=== PATIENT | female | born 1995 | race Hispanic/Latino ===

== ENCOUNTER 2018-10-30 21:47 | Emergency (ER) | payer BC, SELFPAY ==
--- NOTE | 2018-10-30 22:04 | PC.NURSE ---
went to triage pt, she states she does not want to wait (saw full waiting room). here for URI symptoms. Encouraged to return if any concerns
== END 2018-10-30 22:04 | disposition left against medical advice (07) ==
PROVIDERS: Emergency Provider Emergency Medicine
DX: Z53.21 Procedure and treatment not carried out due to patient leaving prior to being seen by health care provider (principal)

== ENCOUNTER 2019-02-08 11:01 | Emergency (ER) | payer BC, SELFPAY ==
[2019-02-08 11:08] VITALS: BP 132/92; PULSE 75; RESP 19; O2SAT 100; BMI 24.0
[2019-02-08 11:36] LABS: Add Manual Diff / Slide Review NO; Basophils Absolute Auto 0 /uL (0-100); Basophils Percent Auto 0.3 % (0-2); Eosinophils Absolute Auto 0 /uL (0-450); Hematocrit 40.5 % (36-46); Hemoglobin 14.1 g/dL (12.0-16.0); INR 1.3 (0.9-1.3); Lymphocytes Absolute Auto 1900 /uL (1100-4500); Lymphocytes Percent Auto 18.1 % (25-40); Mean Corpuscular HGB Conc 34.7 % (30-36); Mean Corpuscular Hemoglobin 31.8 PG (26-34); Mean Corpuscular Volume 91.7 fL (80-100); Monocytes Absolute Auto 800 /uL (0-900); Monocytes Percent Auto 7.5 % (3-14); Neutrophils Absolute Auto 7700 /uL (1500-7000); Neutrophils Percent Auto 74.1 % (50-75); Platelet Count 179 X10^3/uL (150-400); Red Blood Cell Count 4.42 X10^6/uL (4.0-5.2); Red Cell Distribution Width 12.4 % (11.6-14.8); White Blood Cell Count 10.4 X10^3/uL (4.5-11.0)
[2019-02-08 11:39] LABS: PTT Partial Thromboplastin Tim 37 SECONDS (26.4-36.2)
[2019-02-08 11:40] LABS: Alanine Aminotransferase 33 IU/L (9-52); Albumin 4.6 g/dL (3.5-5.0); Albumin Globulin Ratio 1.3 (1.0-2.8); Alkaline Phosphatase 78 U/L (38-126); Aspartate Aminotransferase 35 IU/L (14-36); BUN Creatinine Ratio 12.9 (6-22); Bilirubin Total 0.8 mg/dL (0.2-1.3); Blood Urea Nitrogen 9 mg/dL (7-17); Calcium 9.3 mg/dL (8.4-10.2); Carbon Dioxide 27 mmol/L (22-32); Chloride 101 mmol/L (98-107); Estimated Glomerular Filt Rate > 60.0 mL/min (>60); Globulin 3.6 g/dL (1.7-4.1); Glucose 106 mg/dL (70-100); HEMOLYSIS < 15 (0-50); Lipase 45 U/L (23-300); Potassium 3.4 mmol/L (3.4-5.1); Sodium 137 mmol/L (137-145); Total Protein 8.2 g/dL (6.3-8.2)
--- NOTE | 2019-02-08 12:18 | DI.US.S_ITS ---
PROCEDURE: US PELVIC COMPLETE INDICATIONS: RIGHT PELVIC PAIN TECHNIQUE: Real-time scanning was performed of the pelvic organs, with image documentation. Additional endovaginal scanning was necessary due to incomplete visualization of the adnexal and endometrial structures by transabdominal scanning. COMPARISON: None. FINDINGS: Transabdominal scanning: Limited scanning through the kidneys shows no hydronephrosis. Minimal complex fluid within the cul-de-sac is present. Endovaginal scanning: Uterus: Uterus is normal in size at 6.5 x 3.0 x 3.5 cm. The endometrium measures 4.5 mm in combined thickness. Ovaries: Right ovary measures 35 x 19 x 26 mm. The left ovary measures 29 x 24 x 30 mm. IMPRESSION: 1. Minimal complex fluid within the cul-de-sac. Otherwise, unremarkable exam. Dictated by: Nicole Pereira M.D. on 02/08/2019 at 13:28 Approved by: Nicole Pereira M.D. on 02/08/2019 at 13:35
--- NOTE | 2019-02-08 13:45 | DI.CT.S_ITS ---
PROCEDURE: CT ABDOMEN PELVIS W CON INDICATIONS: right lower quad pain x 24 hours TECHNIQUE: After the administration of intravenous contrast, 5 mm thick sections acquired from the diaphragm to the symphysis. 5 mm coronal and sagittal reformats were acquired. For radiation dose reduction, the following was used: automated exposure control, adjustment of mA and/or kV according to patient size. COMPARISON: [facility], CT, ABD/PELVIS W/CON (PNL), 05/16/2010, 22:13. FINDINGS: Image quality: Excellent. ABDOMEN: Lung bases: Lung bases are clear. Heart size is normal. Solid organs: Liver is normal in size and enhancement. Mild, diffuse fatty infiltration of the liver. Gallbladder is within normal limits. Biliary system is non dilated. Pancreas enhances normally. Spleen is normal in size and enhancement. No adrenal nodules. Kidneys demonstrate normal size and enhancement, without hydronephrosis. Peritoneum and bowel: Bowel loops demonstrate normal wall thickness and caliber. No free air. Small amount of free fluid noted in the cul-de-sac of the pelvis. The visualized portions of the appendix are within normal limits. Nodes and vessels: No retroperitoneal or mesenteric adenopathy by size criteria. Aorta and inferior vena cava are normal in size. Miscellaneous: No ventral hernias. PELVIS: Genitourinary: Bladder wall thickness is normal. Numerous bilateral adnexal functional follicles are noted. Miscellaneous: No inguinal hernias or adenopathy. Bones: No suspicious bony lesions. No vertebral body compression fractures. IMPRESSION: 1. Visualized portions of the appendix are normal. Please note the base of the appendix is not visualized and the earliest manifestation of appendicitis cannot be completely excluded. 2. Small amount of free fluid in the cul-de-sac of the pelvis likely physiologic. 3. Multiple bilateral adnexal functional follicles. Please correlate with clinical data to exclude polycystic ovarian disease. 4. Hepatic steatosis. Dictated by: Ailyn Cortez MD, PhD on 02/08/2019 at 14:49 Approved by: Ailyn Cortez MD, PhD on 02/08/2019 at 14:56
[2019-02-08] MEDS: SODIUM CHLORIDE 0.9% 1,000 ML 1000 ML IV (14:05)
--- NOTE | 2019-02-08 14:29 | ED_ITS ---
HPI - Abdominal Pain <LISETTE Sifuentes - Last Filed: 02/08/19 15:35> General Chief Complaint: Abdominal Pain Stated Complaint: sweaty,loss of apetitie Time Seen by Provider: 02/08/19 12:06 Source: patient Mode of arrival: ambulatory Limitations: no limitations History of Present Illness HPI narrative: The patient is a 23-year-old female who does not take any medications and is a nonsmoker presents with a chief complaint of right lower quadrant pain for the past 3 days. She states it started in her general abdomen, then moved to the right lower quadrant. She complains of some nausea, sweats and chills. She denies any overt fevers, denies dysuria urgency or frequency. She denies any vaginal discharge or vaginal bleeding. She presented to the walk-in clinic, was found that she had a negative UA, as well as a negative test. They are concerned about appendicitis, so they sent her here to the emergency department. The patient states her last bowel movement was 2 days ago. She does not take any control, but denies any possibility of . She also denies any possibility of sexually transmitted infections. Related Data Home Medications Medication Instructions Recorded Confirmed No Known Home Medications 02/08/19 02/08/19 Allergies Allergy/AdvReac Type Severity Reaction Status Date / Time No Known Drug Allergies Allergy Verified 02/08/19 11:08 Review of Systems <LISETTE Sifuentes - Last Filed: 02/08/19 15:35> Review of Systems GENERAL: Denies chills, fatigue, malaise, fever, sweats. HEENT: Denies sinus pain, ear pain, sore throat, difficulty swallowing, dizziness. RESPIRATORY: Denies dyspnea, cough, wheezing, hemoptysis, sputum. CARDIOVASCULAR: Denies chest pain, palpitations, orthopnea, edema, GASTROINTESTINAL: See HPI : Denies dysuria, frequency, incontinence, hematuria, urinary retention. MUSCULOSKELETAL: denies weakness, joint pain, or bony pain SKIN: Denies rash, skin lesions, or other NEUROLOGIC: Denies weakness, headache, numbness, change in speech, confusion, seizures, incoordination. PSYCHIATRIC: No concerning psychosocial issues. 12 point review of systems is negative except for those stated above PFSH <SARAH BETH [facility] - Last Filed: 02/08/19 15:35> Social History Smoking Status: Never smoker alcohol intake: current Social History Smoking Status: Never smoker alcohol intake: current Exam <NIRAV Sifuentes - Last Filed: 02/08/19 15:35> Narrative Exam Narrative: GENERAL: This is a well-nourished, well-developed patient, no acute distress HEAD: Atraumatic. Normocephalic. No temporal or scalp tenderness. EYES: Pupils equal round and reactive. Extraocular motions intact. No scleral icterus. No injection or drainage. ENT: Nose without bleeding, purulent drainage or septal hematoma. Throat without erythema, tonsillar hypertrophy or exudate. Uvula midline. Airway patent. NECK: Trachea midline. No JVD or lymphadenopathy. Supple, nontender, no meningeal signs. CARDIOVASCULAR: Regular rate and rhythm without murmurs, gallops, or rubs. RESPIRATORY: Clear to auscultation. Breath sounds equal bilaterally. No wheezes, rales, or rhonchi. No cough. No increased respiratory effort. No accessory muscle use. GASTROINTESTINAL: Abdomen soft, pain to palpation of McBurney's point with slight guarding. Active bowel sounds all 4 quadrants. No tenderness other than right lower quadrant. EXTREMITIES: No clubbing, cyanosis, or edema. No joint tenderness, effusion, or edema noted. BACK: Nontender without deformity or crepitance. No flank tenderness. NEURO: AOx3. SKIN: No rash or erythema. Initial Vital Signs Initial Vital Signs: Vital Signs Pulse Rate 75 02/08/19 11:08 Respiratory Rate 02/08/19 11:08 Blood Pressure 132/92 H 02/08/19 11:08 Pulse Oximetry 100 02/08/19 11:08 <Rubi Diaz MD - Last Filed: 02/08/19 20:36> Initial Vital Signs Initial Vital Signs: Vital Signs Pulse Rate 75 02/08/19 11:08 Respiratory Rate 02/08/19 11:08 Blood Pressure 132/92 H 02/08/19 11:08 Pulse Oximetry 100 02/08/19 11:08 Course <NIRAV Sifuentes - Last Filed: 02/08/19 15:35> Orders Ordered: ED Orders 02/08/19 12:18 US pelvic complete Stat 02/08/19 13:45 CT abdomen pelvis w con Stat Discontinued Medications Sodium Chloride (Normal Saline 0.9%) 1,000 mls @ 1,000 mls/hr IV BOLUS ONE Stop: 02/08/19 14:34 Last Infusion: 02/08/19 15:21 Dose: 0 mls/hr Admin: 02/08/19 14:05 Dose: 1,000 mls/hr Vital Signs - 8 hr 02/08/19 15:37 Pulse Rate 82 Respiratory Rate 12 Blood Pressure 118/76 Pulse Oximetry 98 <Rubi Diaz MD - Last Filed: 02/08/19 20:36> Orders Ordered: ED Orders 02/08/19 12:18 US pelvic complete Stat 02/08/19 13:45 CT abdomen pelvis w con Stat Discontinued Medications Sodium Chloride (Normal Saline 0.9%) 1,000 mls @ 1,000 mls/hr IV BOLUS ONE Stop: 02/08/19 14:34 Last Infusion: 02/08/19 15:21 Dose: 0 mls/hr Admin: 02/08/19 14:05 Dose: 1,000 mls/hr Vital Signs - 8 hr 02/08/19 15:37 Pulse Rate 82 Respiratory Rate 12 Blood Pressure 118/76 Pulse Oximetry 98 MDM - Abdominal Pain <NIRAV Sifuentes - Last Filed: 02/08/19 15:35> Lab Data Result diagrams: 02/08/19 11:19 02/08/19 11:19 Lab Results 02/08/19 02/08/19 02/08/19 Range/Units 11:19 11:19 11:19 WBC 10.4 (4.5-11.0) X10^3/uL RBC 4.42 (4.0-5.2) X10^6/uL Hgb 14.1 (12.0-16.0) g/dL Hct 40.5 (36-46) % MCV 91.7 (80-100) fL MCH 31.8 (26-34) PG MCHC 34.7 (30-36) % RDW 12.4 (11.6-14.8) % Plt Count 179 (150-400) X10^3/uL Neut % (Auto) 74.1 (50-75) % Lymph % (Auto) 18.1 L (25-40) % [place] % (Auto) 7.5 (3-14) % Eos % (Auto) 0.0 L (2-4) % Baso % (Auto) 0.3 (0-2) % Neut # (Auto) 7700 H (8618-2435) /uL Lymph # (Auto) 1900 (5980-9732) /uL [place] # (Auto) 800 (0-900) /uL Eos # (Auto) 0 (0-450) /uL Baso # (Auto) 0 (0-100) /uL PT 15.0 H (10.1-12.7) SECONDS INR 1.3 (0.9-1.3) APTT 37 H (26.4-36.2) SECONDS Sodium 137 (137-145) mmol/L Potassium 3.4 (3.4-5.1) mmol/L Chloride 101 (98-107) mmol/L Carbon Dioxide 27 (22-32) mmol/L BUN 9 (7-17) mg/dL Creatinine 0.70 (0.52-1.04) mg/dL Estimated GFR > 60.0 (>60) mL/min BUN/Creatinine Ratio 12.9 (6-22) Glucose 106 H (70-100) mg/dL Calcium 9.3 (8.4-10.2) mg/dL Total Bilirubin 0.8 (0.2-1.3) mg/dL AST 35 (14-36) IU/L ALT 33 (9-52) IU/L Alkaline Phosphatase 78 (38-126) U/L Total Protein 8.2 (6.3-8.2) g/dL Albumin 4.6 (3.5-5.0) g/dL Globulin 3.6 (1.7-4.1) g/dL Albumin/Globulin Ratio 1.3 (1.0-2.8) Lipase 45 (23-300) U/L Imaging Data CT scan - abdomen: Radiologist's impression: [address] [address] [address] Scan Report Signed Patient: Krupa Angel#: [id number] : 1995Acct:[id number] Age/Sex: 23 / FDate of Service: 02/08/19 Loc: ED Accession Number: [id number] Procedure: CT abdomen pelvis w con Ordering Provider: Brandie Durant PROCEDURE: CT ABDOMEN PELVIS W CON INDICATIONS: right lower quad pain x 24 hours TECHNIQUE: After the administration of intravenous contrast, 5 mm thick sections acquired from the diaphragm to the symphysis. 5 mm coronal and sagittal reformats were acquired. For radiation dose reduction, the following was used: automated exposure control, adjustment of mA and/or kV according to patient size. COMPARISON: [facility], CT, ABD/PELVIS W/CON (PNL), 05/16/2010, 22:13. FINDINGS: Image quality: Excellent. ABDOMEN: Lung bases: Lung bases are clear. Heart size is normal. Solid organs: Liver is normal in size and enhancement. Mild, diffuse fatty infiltration of the liver. Gallbladder is within normal limits. Biliary system is non dilated. Pancreas enhances normally. Spleen is normal in size and enhancement. No adrenal nodules. Kidneys demonstrate normal size and enhancement, without hydronephrosis. Peritoneum and bowel: Bowel loops demonstrate normal wall thickness and caliber. No free air. Small amount of free fluid noted in the cul-de-sac of the pelvis. The visualized portions of the appendix are within normal limits. Nodes and vessels: No retroperitoneal or mesenteric adenopathy by size criteria. Aorta and inferior vena cava are normal in size. Miscellaneous: No ventral hernias. PELVIS: Genitourinary: Bladder wall thickness is normal. Numerous bilateral adnexal functional follicles are noted. Miscellaneous: No inguinal hernias or adenopathy. Bones: No suspicious bony lesions. No vertebral body compression fractures. IMPRESSION: 1. Visualized portions of the appendix are normal. Please note the base of the appendix is not visualized and the earliest manifestation of appendicitis cannot be completely excluded. 2. Small amount of free fluid in the cul-de-sac of the pelvis likely physiologic. 3. Multiple bilateral adnexal functional follicles. Please correlate with clinical data to exclude polycystic ovarian disease. 4. Hepatic steatosis. Dictated by: Ailyn Cortez MD, PhD on 02/08/2019 at 14:49 Approved by: Ailyn Cortez MD, PhD on 02/08/2019 at 14:56 Pelvic ultrasound: Radiologist's impression: [address] [address] Ultrasound Report Signed Patient: Krupa AngelMR#: [id number] : 1995Acct:[id number] Age/Sex: 23 / FDate of Service: 02/08/19 Loc: ED Accession Number: [id number] Procedure: US pelvic complete Ordering Provider: Brandie Durant PROCEDURE: US PELVIC COMPLETE INDICATIONS: RIGHT PELVIC PAIN TECHNIQUE: Real-time scanning was performed of the pelvic organs, with image documentation. Additional endovaginal scanning was necessary due to incomplete visualization of the adnexal and endometrial structures by transabdominal scanning. COMPARISON: None. FINDINGS: Transabdominal scanning: Limited scanning through the kidneys shows no hydronephrosis. Minimal complex fluid within the cul-de-sac is present. Endovaginal scanning: Uterus: Uterus is normal in size at 6.5 x 3.0 x 3.5 cm. The endometrium measures 4.5 mm in combined thickness. Ovaries: Right ovary measures 35 x 19 x 26 mm. The left ovary measures 29 x 24 x 30 mm. IMPRESSION: 1. Minimal complex fluid within the cul-de-sac. Otherwise, unremarkable exam. Dictated by: Nicole Pereira M.D. on 02/08/2019 at 13:28 Approved by: Nicole Pereira M.D. on 02/08/2019 at 13:35 MDM Narrative Medical decision making narrative: The patient is a 23-year-old female who presents with right lower quadrant pain. She had no acute findings on her ultrasound. Given her exam, I also obtained a CT, which also does not show any appendicitis. I did discuss the patient multiple ovarian cysts seen on CT as w ell as hepatic steatosis. It is reassuring that she does not have elevated white blood cell count. I discussed at length follow up with PCP and gave her contact information for the [facility] health instructional resource teacher. We did discuss return precautions such as inability keep down fluids, abdominal pain with fever etc. Patient has no questions or concerns upon discharge. She was hemodynamically stable and afebrile throughout her stay in the ER. <Rubi Diaz MD - Last Filed: 02/08/19 20:36> Lab Data Lab Results 06/25/19 06/25/19 06/25/19 Range/Units 11:19 11:19 11:19 WBC 10.4 (4.5-11.0) X10^3/uL RBC 4.42 (4.0-5.2) X10^6/uL Hgb 14.1 (12.0-16.0) g/dL Hct 40.5 (36-46) % MCV 91.7 (80-100) fL MCH 31.8 (26-34) PG MCHC 34.7 (30-36) % RDW 12.4 (11.6-14.8) % Plt Count 179 (150-400) X10^3/uL Neut % (Auto) 74.1 (50-75) % Lymph % (Auto) 18.1 L (25-40) % [place] % (Auto) 7.5 (3-14) % Eos % (Auto) 0.0 L (2-4) % Baso % (Auto) 0.3 (0-2) % Neut # (Auto) 7700 H (0039-6205) /uL Lymph # (Auto) 1900 (3939-1692) /uL [place] # (Auto) 800 (0-900) /uL Eos # (Auto) 0 (0-450) /uL Baso # (Auto) 0 (0-100) /uL PT 15.0 H (10.1-12.7) SECONDS INR 1.3 (0.9-1.3) APTT 37 H (26.4-36.2) SECONDS Sodium 137 (137-145) mmol/L Potassium 3.4 (3.4-5.1) mmol/L Chloride 101 (98-107) mmol/L Carbon Dioxide 27 (22-32) mmol/L BUN 9 (7-17) mg/dL Creatinine 0.70 (0.52-1.04) mg/dL Estimated GFR > 60.0 (>60) mL/min BUN/Creatinine Ratio 12.9 (6-22) Glucose 106 H (70-100) mg/dL Calcium 9.3 (8.4-10.2) mg/dL Total Bilirubin 0.8 (0.2-1.3) mg/dL AST 35 (14-36) IU/L ALT 33 (9-52) IU/L Alkaline Phosphatase 78 (38-126) U/L Total Protein 8.2 (6.3-8.2) g/dL Albumin 4.6 (3.5-5.0) g/dL Globulin 3.6 (1.7-4.1) g/dL Albumin/Globulin Ratio 1.3 (1.0-2.8) Lipase 45 (23-300) U/L Discharge Plan Departure Patient Disposition: Home Clinical Impression: Abdominal pain Qualifiers: Abdominal location: right lower quadrant Qualified Code(s): R10.31 - Right lower quadrant pain Discharge Date/Time: 02/08/19 15:37 Interventions: ED Discharge Assessment Last Done: 02/08/19 15:37 Instructions: DI for Abdominal Pain-Adult Activity Restrictions/Additional Instructions: Your evaluation today did not find any specific reason for your right lower quadrant pain. Please follow up with her primary care provider. I have given contact information for [facility] health instructional resource teacher, who can help you identify a primary care provider. Please come back to the emergency department for any acute concerns such as fever with abdominal pain, inability keep down fluids, etc. I recommend a simple diet for the next few days. Prescriptions: No Action No Known Home Medications RF: 0 Referrals: [facility] [Outside] Stand Alone Forms: Work Release Note
[2019-02-08 15:37] VITALS: BP 118/76; PULSE 82; RESP 12; O2SAT 98
== END 2019-02-08 15:37 | disposition home or self-care (01) ==
PROVIDERS: Emergency Medicine; Emergency Provider Nurse Practitioner Family
DX: R10.31 Right lower quadrant pain (principal)
CPT/HCPCS: 36415; 36591; 74177; 76856; 80053; 83690; 85025; 85610; 85730; 96360; 99283; 99284; Q9967

== ENCOUNTER → 2019-07-08 16:25 | Outpatient (CLI) | payer BC, SELFPAY ==
[2019-07-08 18:21] LABS: Add Manual Diff / Slide Review NO; Basophils Absolute Auto 100 /uL (0-100); Basophils Percent Auto 0.4 % (0-2); Eosinophils Absolute Auto 0 /uL (0-450); Eosinophils Percent Auto 0.3 % (2-4); Hematocrit 38.6 % (36-46); Lymphocytes Absolute Auto 4100 /uL (1100-4500); Mean Corpuscular HGB Conc 33.6 % (30-36); Mean Corpuscular Hemoglobin 32.2 PG (26-34); Mean Corpuscular Volume 95.9 fL (80-100); Monocytes Absolute Auto 900 /uL (0-900); Monocytes Percent Auto 6.2 % (3-14); Neutrophils Absolute Auto 9700 /uL (1500-7000); Neutrophils Percent Auto 65.1 % (50-75); Platelet Count 211 X10^3/uL (150-400); Red Blood Cell Count 4.03 X10^6/uL (4.0-5.2); Red Cell Distribution Width 12.4 % (11.6-14.8); White Blood Cell Count 14.8 X10^3/uL (4.5-11.0)
[2019-07-08 20:17] LABS: Hepatitis B Surface Antigen NEGATIVE s/c (NEGATIVE); Rubella Antibody IgG 15.3 IU/mL (>15)
[2019-07-08 20:32] LABS: HIV 1 & 2 Ab/Ag 4th Gen Combo NEGATIVE (NEGATIVE); Hep C Virus Ab w/Reflex Quant NEGATIVE s/c (NEGATIVE)
[2019-07-11 18:35] LABS: RPR Screen Nonreactive (Nonreactive)
== END ==
PROVIDERS: Visit Provider Obstetrics & Gynecology
DX: Z34.01 Encounter for supervision of normal first pregnancy, first trimester (principal)
CPT/HCPCS: 36415; 80055; 86787; 86803; 86850; 86900; 86901; 87389

== ENCOUNTER → 2019-08-04 14:37 | Outpatient (CLI) | payer BC, SELFPAY | PROVIDERS: Visit Provider Family Medicine | DX: Z34.01 Encounter for supervision of normal first pregnancy, first trimester (principal); Z3A.10 10 weeks gestation of pregnancy | CPT/HCPCS: 87086 ==

== ENCOUNTER 2019-09-05 10:50 | Emergency (ER) | payer OTHER, BC, SELFPAY ==
[2019-09-05 10:50] VITALS: BP 125/85; PULSE 102; RESP 18; O2SAT 100
--- NOTE | 2019-09-05 10:56 | ED.SYNCOPE ---
HPI - Syncope <KEYSHA Barlow - Last Filed: 09/05/19 17:11> General Chief Complaint: Syncope Stated Complaint: 15w3d preg, syncopal episode Time Seen by Provider: 09/05/19 10:55 Source: patient and EMS Mode of arrival: EMS Limitations: no limitations History of Present Illness HPI narrative: 24yo female presents to the emergency department for syncope. She states she was at work, she was standing and loading an x-ray film and the next thing she remembers she woke up on the floor with her coworkers surrounding her, including a doctor. She was not told how long that she had passed out for. When she woke she felt like her arms felt heavy but denies any other symptoms. She is unsure if anyone caught her. 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 She states that she ate a bagel this morning, EMS said patient's blood sugar was 80 when they arrived she had a spoon of Nutella in her hand. Patient denies any symptoms such as headache, blurred vision, double vision, history of high blood pressure, history of diabetes, history of cardiac issues, chest pain, shortness of breath, abdominal pain, neck pain, dizziness at this time, nausea, vomiting, diarrhea, vaginal bleeding, or concerns. She states this has been uneventful other than nausea and vomiting in the 1st trimester which has resolved. She states she has never passed out the past. Related Data Home Medications Medication Instructions Recorded Confirmed prenat.vits,jeff,[id number] 1 tab PO DAILY 07/08/19 09/02/19 [id number] 1 tab PO DAILY 09/05/19 09/05/19 [] Previous Rx's Medication Instructions Recorded metoclopramide HCl 10 mg tablet 10 mg PO Q6H PRN #20 tab 07/22/19 ondansetron 4 mg disintegrating 4 mg PO Q8H PRN #20 tab MDD 12 mg 08/08/19 tablet Allergies Allergy/AdvReac Type Severity Reaction Status Date / Time No Known Drug Allergies Allergy Unverified 09/05/19 10:53 Review of Systems <KEYSHA Barlow - Last Filed: 09/05/19 17:11> Review of Systems Narrative: REVIEW OF SYSTEMS: GENERAL: Denies fever or chills. HENT: No head trauma, hearing loss or sore throat. EYES: No loss of vision, double vision, eye pain, or irritation. CARDIOVASCULAR: No chest pain. Reports syncope, see HPI. RESPIRATORY: No shortness of breath or cough. GASTROINTESTINAL: No nausea, vomiting, diarrhea, or constipation. GENITOURINARY: No flank pain or dysuria. MUSCULOSKELETAL: No pain, weakness, or deformities. INTEGUMENTARY: No rash, lesions, or pruritus. NEURO: No numbness, tingling, memory loss, or confusion. PSYCH: No behavior or mood changes. Patient History <KEYSHA Barlow - Last Filed: 09/05/19 17:11> Medical History No significant family history (Acute) Social History marital status: pets and animals: Yes (Dog) education level: college (15 years) current occupational exposures/hazards: No special tete needs: No Smoking Status: Never smoker alcohol intake: current substance use type: marijuana (uses for anxiety management : used for 6 weeks before she knew she was pregant.) Smoking Status: Never smoker alcohol intake frequency: 0-2 drinks per day Substance Use Type: does not use Exam <KEYSHA Barlow - Last Filed: 09/05/19 17:11> Initial Vital Signs Initial Vital Signs: Vital Signs Pulse Rate 102 H 09/05/19 10:50 Respiratory Rate 18 09/05/19 10:50 Blood Pressure 125/85 09/05/19 10:50 Pulse Oximetry 100 09/05/19 10:50 PHYSICAL EXAMINATION: GENERAL: Well groomed, alert, and cooperative. Answers questions promptly and appropriately. Vital signs noted. HENT: Normocephalic, atraumatic. Oropharynx without erythema. Ear canals patent. Oral mucosa is pink and moist. EYES: PERRLA, EOMIs, Conjunctiva pink, sclera white, no periorbital swelling. NECK: Nontender, full range of motion CHEST: Normal to inspection and without deformities. CARDIOVASCULAR: S1 and S2 sounds normal. Regular rate and rhythm, no murmurs, clicks, or bruits. No pedal edema. RESPIRATORY: Normal respiratory rate, trachea midline, airway patent. No stridor, nasal flaring or accessory muscle use. Lungs are clear in all lopez without wheeze, rhonchi, or crackles. GASTROINTESTINAL: Bowel sounds normoactive. Abdomen is soft and non-tender. Fundus palpated above pubic bone. MUSCULOSKELETAL: Normal gait and coordination. Equal tone and mass bilaterally. EXTREMITIES: CMS intact. Moves all extremities. SKIN: Warm, dry, soft, appropriate color for ethnicity. No lesions, rashes, or wounds. NEURO: Alert and Oriented X 3. Good coordination. CN III-XII grossly intact. No ataxia, or sensory deficits, or cognitive issues. PSYCH: Appropriate affect and mood. <Brandie Vargas DO - Last Filed: 09/06/19 19:10> Initial Vital Signs Initial Vital Signs: Vital Signs Pulse Rate 102 H 09/05/19 10:50 Respiratory Rate 18 09/05/19 10:50 Blood Pressure 125/85 09/05/19 10:50 Pulse Oximetry 100 09/05/19 10:50 Scores <KEYSHA Barlow - Last Filed: 09/05/19 17:11> GCS Wanda coma scale eye opening: Spontaneous Wanda coma scale verbal response: Orientated Wanda coma scale motor response: Obey commands [place] coma scale total score: 15 Nexus Score for C-Spine Focal Neurologic deficit present: No Midline spinal tenderness present: No Altered level of conciousness present: No Intoxication present: No Distracting Injury Present: No Nexus Criteria for C-spine: 0 Course <KEYSHA Barlow - Last Filed: 09/05/19 17:11> Course Course Narrative: Patient was given a L fluid in the emergency department, she states she is feeling much better after the fluid. She was given a snack and was able to ambulate without any distress or symptoms. Orders Ordered: Discontinued Medications Sodium Chloride (Normal Saline 0.9%) 1,000 mls @ 1,000 mls/hr IV BOLUS ONE Stop: 09/05/19 11:52 Last Infusion: 09/05/19 12:18 Dose: 0 mls/hr Documented by: Admin: 09/05/19 11:12 Dose: 1,000 mls/hr Documented by: SCANAPO Consultations Consultation #1: Patient staffed with Dr. Vargas. Vital Signs Vital signs: Vital Signs - 8 hr 09/05/19 10:50 09/05/19 11:23 09/05/19 12:00 Pulse Rate 102 H 84 89 Respiratory Rate 18 21 17 Blood Pressure 125/85 Blood Pressure [Left Arm] 124/74 122/81 Pulse Oximetry 100 100 100 <Brandie Vargas DO - Last Filed: 09/06/19 19:10> Orders Ordered: Discontinued Medications Sodium Chloride (Normal Saline 0.9%) 1,000 mls @ 1,000 mls/hr IV BOLUS ONE Stop: 09/05/19 11:52 Last Infusion: 09/05/19 12:18 Dose: 0 mls/hr Documented by: Admin: 09/05/19 11:12 Dose: 1,000 mls/hr Documented by: SCANAPO Vital Signs Vital signs: Vital Signs - 8 hr 09/05/19 10:50 09/05/19 11:23 09/05/19 12:00 Pulse Rate 102 H 84 89 Respiratory Rate 18 21 17 Blood Pressure 125/85 Blood Pressure [Left Arm] 124/74 122/81 Pulse Oximetry 100 100 100 MDM - Syncope <KEYSHA Barlow - Last Filed: 09/05/19 17:11> Medical Records Attestation: I reviewed the patient's medical records. Lab Data Attestation: I reviewed the patient's lab results. Result diagrams: 09/05/19 11:00 09/05/19 11:00 Labs: Lab Results 09/05/19 09/05/19 Range/Units 11:00 11:00 WBC 14.2 H (4.5-11.0) X10^3/uL RBC 4.00 (4.0-5.2) X10^6/uL Hgb 13.2 (12.0-16.0) g/dL Hct 37.2 (36-46) % MCV 93.1 (80-100) fL MCH 32.9 (26-34) PG MCHC 35.4 (30-36) % RDW 12.5 (11.6-14.8) % Plt Count 183 (150-400) X10^3/uL Neut % (Auto) 68.4 (50-75) % Lymph % (Auto) 24.4 L (25-40) % [place] % (Auto) 5.8 (3-14) % Eos % (Auto) 0.7 L (2-4) % Baso % (Auto) 0.7 (0-2) % Neut # (Auto) 9700 H (8632-1589) /uL Lymph # (Auto) 3500 (7400-6653) /uL [place] # (Auto) 800 (0-900) /uL Eos # (Auto) 100 (0-450) /uL Baso # (Auto) 100 (0-100) /uL Sodium 134 L (137-145) mmol/L Potassium 3.8 (3.4-5.1) mmol/L Chloride 104 (98-107) mmol/L Carbon Dioxide 19 L (22-32) mmol/L BUN 8 (7-17) mg/dL Creatinine 0.40 L (0.52-1.04) mg/dL Estimated GFR > 60.0 (>60) mL/min BUN/Creatinine Ratio 20.0 (6-22) Glucose 92 (70-100) mg/dL Calcium 9.7 (8.4-10.2) mg/dL Total Bilirubin 0.3 (0.2-1.3) mg/dL AST 41 H (14-36) IU/L ALT 47 H (<35) IU/L Alkaline Phosphatase 77 (38-126) U/L Total Creatine Kinase 65 (30-135) U/L CK-MB (CK-2) TNP CK-MB (CK-2) Rel Index TNP Troponin I < 0.012 (0.01-0.034) ng/mL Total Protein 8.1 (6.3-8.2) g/dL Albumin 4.5 (3.5-5.0) g/dL Globulin 3.6 (1.7-4.1) g/dL Albumin/Globulin Ratio 1.3 (1.0-2.8) Urine Dip Bedside Urine Glucose Negative Bedside Urine Bilirubin - Negative Bedside Urine Ketone - Negative Bedside Urine Occult Blood - Negative Bedside Urine Protein - Negative Bedside Urine Urobilinogen - Negative Bedside Urine Nitrite - Negative Bedside Urine Leukocytes - Negative Esterase ECG Data Interpretation: EKG read by Dr. Vargas per protocol. Normal sinus rhythm, rate 93, IN interval 163, QTC 387. No ST elevation or ST depression. No T-wave abnormality. No ectopy. MDM Narrative Medical decision making narrative: 24-year-old healthy female presents to the emergency department for what appears to be syncope most likely related to dehydration, changes in blood volume related to , and overheating (patient felt better after normal saline administration, slight hyponatremia, glucose of 80 in the field). Patient's white blood cells and LFTs were slightly elevated, this may be directly related to . Less likely cardiac etiology due to normal EKG and negative troponin. Less concern for head trauma as GCS is 15, no visible head trauma, no signs of concussion such as headache, memory loss, or vision changes. Less concern for preeclampsia related etiology as blood pressure is within normal limits, urine is negative for protein, patient denies any other symptoms. Less concern for compromise as heart tones were within normal limit, no vaginal bleeding, denies falling on her stomach, and no abdominal cramping. She was educated extensively about continuing to eat and hydrate. She was able to walk around the room without any symptoms such as dizziness or presyncope feelings. Patient was encouraged to follow up with her primary care provider in 1-2 weeks for further evaluation. She was given strict ED return precautions. <Brandie Vargas, DO - Last Filed: 09/06/19 19:10> Lab Data Labs: Lab Results 09/05/19 09/05/19 Range/Units 11:00 11:00 WBC 14.2 H (4.5-11.0) X10^3/uL RBC 4.00 (4.0-5.2) X10^6/uL Hgb 13.2 (12.0-16.0) g/dL Hct 37.2 (36-46) % MCV 93.1 (80-100) fL MCH 32.9 (26-34) PG MCHC 35.4 (30-36) % RDW 12.5 (11.6-14.8) % Plt Count 183 (150-400) X10^3/uL Neut % (Auto) 68.4 (50-75) % Lymph % (Auto) 24.4 L (25-40) % [place] % (Auto) 5.8 (3-14) % Eos % (Auto) 0.7 L (2-4) % Baso % (Auto) 0.7 (0-2) % Neut # (Auto) 9700 H (4687-2353) /uL Lymph # (Auto) 3500 (7280-5196) /uL [place] # (Auto) 800 (0-900) /uL Eos # (Auto) 100 (0-450) /uL Baso # (Auto) 100 (0-100) /uL Sodium 134 L (137-145) mmol/L Potassium 3.8 (3.4-5.1) mmol/L Chloride 104 (98-107) mmol/L Carbon Dioxide 19 L (22-32) mmol/L BUN 8 (7-17) mg/dL Creatinine 0.40 L (0.52-1.04) mg/dL Estimated GFR > 60.0 (>60) mL/min BUN/Creatinine Ratio 20.0 (6-22) Glucose 92 (70-100) mg/dL Calcium 9.7 (8.4-10.2) mg/dL Total Bilirubin 0.3 (0.2-1.3) mg/dL AST 41 H (14-36) IU/L ALT 47 H (<35) IU/L Alkaline Phosphatase 77 (38-126) U/L Total Creatine Kinase 65 (30-135) U/L CK-MB (CK-2) TNP CK-MB (CK-2) Rel Index TNP Troponin I < 0.012 (0.01-0.034) ng/mL Total Protein 8.1 (6.3-8.2) g/dL Albumin 4.5 (3.5-5.0) g/dL Globulin 3.6 (1.7-4.1) g/dL Albumin/Globulin Ratio 1.3 (1.0-2.8) Urine Dip Bedside Urine Glucose Negative Bedside Urine Bilirubin - Negative Bedside Urine Ketone - Negative Bedside Urine Occult Blood - Negative Bedside Urine Protein - Negative Bedside Urine Urobilinogen - Negative Bedside Urine Nitrite - Negative Bedside Urine Leukocytes - Negative Esterase Discharge Plan Departure Patient Disposition: Home Clinical Impression: Syncope Qualifiers: Syncope type: unspecified Qualified Code(s): R55 - Syncope and collapse Discharge Date/Time: 09/05/19 12:44 Instructions: DI for Syncope in Adults (Fainting) Activity Restrictions/Additional Instructions: Thank you for entrusting me with your care today. As discussed, your sodium was slightly low today, sprinkle a very small salt on 1 meal every other day for the next 1-2 weeks. Your syncopal episode may be due to dehydration, overheating, and the fluid and glucose demands of . Your EKG was non-remarkable. Your white blood cell count and liver enzymes were slightly elevated, this can be normal in . Please follow up with your primary care provider in 1-2 weeks for further evaluation. 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 Return emergency department if you develop new or worsening symptoms such as repeat episodes of syncope, chest pain, shortness of breath, abdominal pain, vaginal bleeding, fevers, or other concerns. Prescriptions: No Action metoclopramide HCl [Reglan] 10 mg tablet 10 mg PO Q6H PRN (Reason: nausea and vomiting) Qty: 20 RF: 0 ondansetron 4 mg tablet,disintegrating 4 mg PO Q8H MDD 12 mg PRN (Reason: nausea and vomiting) Qty: 20 RF: 0 prenat.vits,jeff,[id number] Tablet 1 tab PO DAILY RF: 0 28-800 mg-mcg Tablet 1 tab PO DAILY RF: 0 Stand Alone Forms: Work Release Note
[2019-09-05 11:09] LABS: Add Manual Diff / Slide Review NO; Basophils Absolute Auto 100 /uL (0-100); Basophils Percent Auto 0.7 % (0-2); Eosinophils Absolute Auto 100 /uL (0-450); Eosinophils Percent Auto 0.7 % (2-4); Hematocrit 37.2 % (36-46); Hemoglobin 13.2 g/dL (12.0-16.0); Lymphocytes Absolute Auto 3500 /uL (1100-4500); Lymphocytes Percent Auto 24.4 % (25-40); Mean Corpuscular HGB Conc 35.4 % (30-36); Mean Corpuscular Hemoglobin 32.9 PG (26-34); Mean Corpuscular Volume 93.1 fL (80-100); Monocytes Absolute Auto 800 /uL (0-900); Monocytes Percent Auto 5.8 % (3-14); Neutrophils Absolute Auto 9700 /uL (1500-7000); Neutrophils Percent Auto 68.4 % (50-75); Platelet Count 183 X10^3/uL (150-400); Red Cell Distribution Width 12.5 % (11.6-14.8); White Blood Cell Count 14.2 X10^3/uL (4.5-11.0)
[2019-09-05] MEDS: SODIUM CHLORIDE 0.9% 1,000 ML 1000 ML IV (11:12)
[2019-09-05 11:23] VITALS: BP 124/74; PULSE 84; RESP 21; O2SAT 100
[2019-09-05 11:28] LABS: Alanine Aminotransferase 47 IU/L (<35); Albumin 4.5 g/dL (3.5-5.0); Albumin Globulin Ratio 1.3 (1.0-2.8); Alkaline Phosphatase 77 U/L (38-126); Aspartate Aminotransferase 41 IU/L (14-36); Bilirubin Total 0.3 mg/dL (0.2-1.3); Blood Urea Nitrogen 8 mg/dL (7-17); Calcium 9.7 mg/dL (8.4-10.2); Carbon Dioxide 19 mmol/L (22-32); Chloride 104 mmol/L (98-107); Creatine Kinase 65 U/L (30-135); Estimated Glomerular Filt Rate > 60.0 mL/min (>60); Globulin 3.6 g/dL (1.7-4.1); Glucose 92 mg/dL (70-100); HEMOLYSIS 22 (0-50); Potassium 3.8 mmol/L (3.4-5.1); Sodium 134 mmol/L (137-145); Total Protein 8.1 g/dL (6.3-8.2)
[2019-09-05 11:38] LABS: Troponin I < 0.012 ng/mL (0.01-0.034)
[2019-09-05 12:00] VITALS: BP 122/81; PULSE 89; RESP 17; O2SAT 100
== END 2019-09-05 12:44 | disposition home or self-care (01) ==
PROVIDERS: Emergency Provider Nurse Practitioner
DX: O26.892 Other specified pregnancy related conditions, second trimester (principal); R55 Syncope and collapse
CPT/HCPCS: 36415; 80053; 81003; 82550; 84484; 85025; 93005; 93010; 96360; 99284

== ENCOUNTER → 2019-09-28 11:06 | Outpatient (CLI) | payer OTHER, BC, SELFPAY ==
[2019-09-28 12:02] LABS: Add Manual Diff / Slide Review NO; Basophils Absolute Auto 0 /uL (0-100); Basophils Percent Auto 0.2 % (0-2); Eosinophils Absolute Auto 100 /uL (0-450); Eosinophils Percent Auto 0.6 % (2-4); Hematocrit 34.3 % (36-46); Hemoglobin 11.6 g/dL (12.0-16.0); Lymphocytes Absolute Auto 2600 /uL (1100-4500); Lymphocytes Percent Auto 19.9 % (25-40); Mean Corpuscular HGB Conc 33.8 % (30-36); Mean Corpuscular Hemoglobin 32.7 PG (26-34); Mean Corpuscular Volume 96.6 fL (80-100); Monocytes Absolute Auto 700 /uL (0-900); Monocytes Percent Auto 5.5 % (3-14); Neutrophils Absolute Auto 9600 /uL (1500-7000); Neutrophils Percent Auto 73.8 % (50-75); Platelet Count 159 X10^3/uL (150-400); Red Blood Cell Count 3.55 X10^6/uL (4.0-5.2)
[2019-09-28 12:22] LABS: Alanine Aminotransferase 52 IU/L (<35); Albumin 3.8 g/dL (3.5-5.0); Albumin Globulin Ratio 1.2 (1.0-2.8); Alkaline Phosphatase 79 U/L (38-126); Aspartate Aminotransferase 45 IU/L (14-36); Bilirubin Total 0.3 mg/dL (0.2-1.3); Blood Urea Nitrogen 8 mg/dL (7-17); Calcium 9.2 mg/dL (8.4-10.2); Carbon Dioxide 21 mmol/L (22-32); Chloride 104 mmol/L (98-107); Estimated Glomerular Filt Rate > 60.0 mL/min (>60); Globulin 3.3 g/dL (1.7-4.1); Glucose 124 mg/dL (70-100); HEMOLYSIS < 15 (0-50); Potassium 3.5 mmol/L (3.4-5.1); Sodium 135 mmol/L (137-145); Total Protein 7.1 g/dL (6.3-8.2)
[2019-09-28 12:47] LABS: TSH w/ Reflex to FT4 1.64 uIU/mL (0.47-4.68)
== END ==
PROVIDERS: PCP Family Medicine; Referring Provider Family Medicine; Visit Provider Family Medicine
DX: Z34.90 Encounter for supervision of normal pregnancy, unspecified, unspecified trimester (principal)
CPT/HCPCS: 36415; 80053; 84443; 85025

== ENCOUNTER → 2019-10-05 10:55 | Outpatient (CLI) | payer OTHER, BC, SELFPAY ==
--- NOTE | 2019-10-21 16:04 | PM.CARDMON.1 ---
Embedded Software Programmer Report Referral & Results Date Patient Seen: 10/05/19 Requesting provider: Elliot Santos Indication: Syncope Duration of monitoring (days): 7 Diary information: There were 7 patient triggered events associated with sinus rhythm and ventricular ectopic beats. There were no patient diary events Data: Minimum heart rate identified was 54 beats per minute at 02:10 on 10/06/2019 Maximum heart rate was 166 beats per minute at 19:40 on 10/10/2019 Less than 1% of identified beats or either ventricular supraventricular ectopic in origin No other significant dysrhythmias identified Patient triggered events seem to be associated with sinus rhythm mostly perhaps rarely a PVC Impression: Essentially normal youth nutritional monitor over 7 days No etiology for syncope identified Occasional PVCs Clinical correlation suggested
== END ==
PROVIDERS: PCP Family Medicine; Referring Provider Family Medicine; Visit Provider Family Medicine
DX: R55 Syncope and collapse (principal)
CPT/HCPCS: 0296T; 0298T

== ENCOUNTER → 2019-10-12 10:43 | Outpatient (CLI) | payer OTHER, BC, SELFPAY ==
--- NOTE | 2019-10-12 10:44 | DI.US.S_ITS ---
PROCEDURE: US OB >= 14 WEEKS FETUS INDICATIONS: ANATOMIC SURVEY OUTSIDE/PRIOR DATING DATA: First dating scan (date and location): 07/08/19. Estimated date of delivery (JADE) from first dating scan: 02/25/20. TECHNIQUE: Real-time scanning was performed of the fetus, with image documentation and biometric measurements. Endovaginal scanning: No COMPARISON: [facility], , OB <= 14 WEEKS FETUS, 07/08/2019, 16:03. FINDINGS: General: A single living intrauterine gestation is present. Presentation: Vertex. Placenta: Placental position is anterior, without previa. Amniotic fluid index: 13.5 cm, normal range is 5-24 cm. heart rate: 150 beats per minute. Maternal cervical canal: 3.8 cm long. Normal lower limit is 2.5 cm. biometrics: Biparietal diameter: 20 weeks 3 days Head circumference: 20 weeks 3 days Abdominal circumference: 20 weeks 2 days Femur length: 20 weeks 3 days Estimated gestational age from initial scan: 20 weeks 4 days Composite gestational age from present scan: 20 weeks 3 days Estimated weight and percentile: 351 g; 35th percentile Measurement variability for biometric dating: +/- 7 days from 14 weeks to 15 weeks 6 days gestation, +/- 10 days from 16 weeks to 21 weeks 6 days gestation, +/- 2 weeks from 22 weeks to 27 weeks 6 days gestation, +/- 3 weeks for 28 weeks gestation or later. weight reference: 4500 g or EFW >90/95% is considered macrosomia or large for gestational age. EFW <10% is small for gestational age. EFW 5% or less is considered intra-uterine growth restriction. Anatomic survey: Neuro: Ventricles are non-dilated at less than 10 mm. Cisterna magna is normal at 3-11 mm. Cerebellum is normal in size and morphology. Nuchal skin fold: Normal at less than 6 mm between 14-21 weeks gestational age. Face: Nose and lips, facial profile are normal. Spine: No evidence for spina bifida. Heart: 4-chambered heart is present, with normal ventricular outflow tracts. Diaphragm: Diaphragm is intact. Stomach: Left-sided stomach is present. Kidneys: No hydronephrosis. Normal is less than 5 mm in 2nd trimester, less than 7 mm in 3rd trimester. Cord: 3-vessel cord has orthotopic insertion. Bladder: Normal in size. Extremities: All 4 extremities identified. IMPRESSION: 1. Single living IUP redemonstrated and interval growth is normal. 2. Normal anatomic survey. Dictated by: Layton Martin [facility] Interpreted: Stanislav Martinez MD on 10/12/2019 at 12:23 Approved by: Stanislav Martinez M.D. on 10/12/2019 at 13:41
== END ==
PROVIDERS: PCP Family Medicine; Referring Provider Family Medicine; Visit Provider Family Medicine
DX: Z34.02 Encounter for supervision of normal first pregnancy, second trimester (principal); Z3A.20 20 weeks gestation of pregnancy
CPT/HCPCS: 76811

== ENCOUNTER → 2019-11-16 11:34 | Outpatient (CLI) | payer OTHER, BC, SELFPAY ==
[2019-11-16 13:50] LABS: Hematocrit 33.8 % (36-46); Hemoglobin 11.5 g/dL (12.0-16.0)
[2019-11-16 13:54] LABS: GTT (PREG) 1 Hour PP 50gm Dose 118 mg/dL (76-139)
== END ==
PROVIDERS: PCP Family Medicine; Referring Provider Family Medicine; Visit Provider Family Medicine
DX: Z34.02 Encounter for supervision of normal first pregnancy, second trimester (principal); Z3A.26 26 weeks gestation of pregnancy
CPT/HCPCS: 82950; 85014; 85018

== ENCOUNTER 2019-12-29 00:31 | Observation (INO) | payer OTHER, BC, MEDICAID, SELFPAY ==
--- NOTE | 2019-12-29 07:42 | P.TNLD_ITS ---
Visit Information Visit Information Date of evaluation: 12/29/19 Primary OB Provider: Elliot Santos Reason for Evaluation: Yes other Comments/Additional reasons for admission: 24-year-old G1 para 0 at 31 weeks gestational age last evening was getting in bed. Her dog jumped up on the bed instead landed on the bed landing on her stomach. Patient had severe pain over stomach. Her baby was moving a lot she became concerned presented to the labor and delivery floor for evaluation. On arrival she had mild abdominal pain and discomfort. Her vital signs were stable she was afebrile. Patient was placed on the monitor. heart tones were reassuring category 1 tracing. Patient was monitored throughout the evening and flour blender hours. During this time baby continued to have a reactive strip mom's vital signs were stable. Her pain gradually abated at this time has no current pain. She feels well. Most recent set of vitals and heart tones are all reassuring. [facility] Social History marital status: pets and animals: Yes (Dog) education level: college (15 years) current occupational exposures/hazards: No special tete needs: No Smoking Status: Never smoker alcohol intake: current substance use type: marijuana (uses for anxiety management : used for 6 weeks before she knew she was pregant.) Exam Vital Signs (past 8 hours): . General: Alert no apparent distress. Affect is appropriate. HEENT: Neck is supple without lymphadenopathy pupils equal round and reactive. Cardio: S1-S2 regular rate and rhythm. Respiratory: Lungs clear to auscultation. Abdomen: Gravid. Extremities: Normal deep tendon reflexes trace edema. [place]: No contractions heart tones: Baseline 130 category 1 Diagnosis, Plan/Disposition Plan/Disposition Plan: Patient will be discharged home. Patient follow-up with Dr. Santos in the office here in 1 week patient has an appointment. She will watch for decreased movement worsening abdominal plain vaginal bleeding and return if those symptoms occur. I also discussed labor precautions and taking it easy for the next 24-48 hours.
== END 2019-12-29 07:50 | disposition home or self-care (01) ==
PROVIDERS: Admitting Provider Obstetrics & Gynecology; PCP Family Medicine; Referring Provider Obstetrics & Gynecology; Visit Provider Obstetrics & Gynecology
DX: O26.893 Other specified pregnancy related conditions, third trimester (principal); R10.84 Generalized abdominal pain; Z3A.31 31 weeks gestation of pregnancy; W54.1XXA Struck by dog, initial encounter
CPT/HCPCS: 59025; 59050; G0378; G0379

== ENCOUNTER 2020-01-22 08:03 | Outpatient (CLI) | payer OTHER, BC, MEDICAID, SELFPAY ==
[2020-01-22] MEDS: PANTOPRAZOLE 40 MG TABLET PO (08:20)
--- NOTE | 2020-01-22 08:20 | P.PNOB_ITS ---
Date/Time Date Patient Seen: 01/22/20 Time Patient Seen: 08:20 Pain Control Comments: Patient comes in today G1 para 0 estimated due date of February 24 with feeling of heartburn pressure shortness of breath very anxious and nervous. She says she has been struggling for 2 days with acid reflux pain and breathing could not sleep all night because of it. She did not know where to go so she came here to the center. She is feeling good baby movement. She is not having any contractions. She has tried some [id number] remedies for heartburn such as Tea and Tums and neither 1 are working well. Contractions Contractions on admission: none Status status: Category l Assessment and Plan Comments: Patient comes in today with heartburn symptoms with shortness of breath and nervousness. Patient seen and evaluated vital signs are stable category 1 heart tracing. Prescription for Protonix orally was given. Patient will be prescribed omeprazole home. Will monitor baby here and the center and mom for about an hour. If the herbal feeling well we will disc harge home. They have an appointment to see me on Thursday.
== END 2020-01-22 08:30 | disposition home or self-care (01) ==
LOC: LABOR 08:13 → OB 01-24 07:40
PROVIDERS: PCP Family Medicine; Referring Provider Specialist; Visit Provider Specialist
DX: O26.893 Other specified pregnancy related conditions, third trimester (principal); R12 Heartburn; R06.02 Shortness of breath; F41.9 Anxiety disorder, unspecified; Z3A.35 35 weeks gestation of pregnancy
CPT/HCPCS: 59025; G0378; G0379

== ENCOUNTER → 2020-01-31 14:46 | Outpatient (CLI) | payer OTHER, BC, MEDICAID, SELFPAY ==
[2020-02-01 15:06] LABS: Strep Grp B PCR NEG for Grp B Strep
== END ==
PROVIDERS: PCP Family Medicine; Visit Provider Family Medicine
DX: Z34.03 Encounter for supervision of normal first pregnancy, third trimester (principal); Z3A.36 36 weeks gestation of pregnancy
CPT/HCPCS: 87653

== ENCOUNTER 2020-02-09 15:28 | Outpatient (CLI) | payer OTHER, BC, MEDICAID, SELFPAY ==
--- NOTE | 2020-02-09 16:18 | P.TNLD_ITS ---
Visit Information Visit Information Date of evaluation: 02/09/20 Primary OB Provider: Elliot Santos On-call OB Provider: Sadia Anderson Reason for Evaluation: Yes rule out labor Vital Signs Vital Signs: Temperature 97.6? Blood pressure 120/80 Heart rate initially 123, came down to 99 PFSH Medical History (Updated 02/09/20 @ 17:24 by Sadia Anderson DO) Anxiety (Acute) FH: multiple pregnancies (Acute) Leg fracture, left (Acute) Migraine (Acute) No significant family history (Acute) Surgical History [place] teeth extracted (Acute) Family History Mother Diabetes mellitus Hypertension Hyperlipidemia Grandfather No problems noted. Grandmother No problems noted. Grandfather No problems noted. Grandmother Diabetes mellitus Hypertension Brother ADHD Learning disability Social History marital status: pets and animals: Yes (Dog) education level: college (15 years) current occupational exposures/hazards: No special tete needs: No Smoking Status: Never smoker alcohol intake: current substance use type: marijuana (uses for anxiety management : used for 6 weeks before she knew she was pregant.) Evaluation Evaluation Baseline heart rate: 140 Variability: Moderate (11-25) monitor accelerations: Present monitor decelerations: Absent Contraction Frequency (minutes): 7 Uterine Contraction Intensity: Mild Category of Tracing: I Diagnosis, Plan/Disposition Final Diagnosis (1) 37 weeks gestation of : Status: Acute Plan/Disposition Plan: 24-year-old at 37 weeks and 5 days gestation with concern for labor. She was miguel angel 7-8 minutes on the monitor. Cervix was unreachable per RN. Patient was advised of the signs of early labor and when to return to the center. Follow-up in clinic or return to center as needed. OB Disposition: home
== END 2020-02-09 16:31 | disposition home or self-care (01) ==
LOC: LABOR 15:50 → OB 02-10 10:54
PROVIDERS: PCP Family Medicine; Referring Provider Family Medicine; Visit Provider Family Medicine
DX: Z34.03 Encounter for supervision of normal first pregnancy, third trimester (principal); Z3A.37 37 weeks gestation of pregnancy
CPT/HCPCS: 59025; G0378; G0379

== ENCOUNTER 2020-03-04 18:07 | Inpatient (IN) | payer OTHER, MEDICAID, SELFPAY ==
[2020-03-04] MEDS: miSOPROStoL 25 MCG TABLET VAG (18:56)
[2020-03-04 20:23] LABS: COVID19 -Nasal RAPID Negative (Negative)
--- NOTE | 2020-03-04 20:41 | PM.OBHP.1 ---
OB HPI Date/Time Date of admission: 03/04/20 Date Patient Seen: 03/04/20 Time Patient Seen: 18:45 History of Present Condition Chief complaint: Obs : 1 Para: 0 Estimated Date of Delivery: 02/25/20 Estimated Gestational Age (weeks): 41w1d Narrative: Krupa Rivera is a 25 year old at 41w1d presenting for post-dates IOL. Pt denies any vaginal bleeding, LOF, or contractions. She has been feeling baby move regularly. Her has been uncomplicated, other than anxiety and depression being treated with Zoloft. Indications Indication for induction OB: post dates History of Present care: good care, initiated at week # (6) and pounds weight gain (26) Dating criteria: based on 1st trimester US only Ultrasounds: normal 1st trimester US and normal mid trimester US Obstetrical complications: none Medical complications: gastrointestinal (GERD) and psychiatric (anxiety and depression) Preadmission Labs Blood type: O (+) positive -: Antibody screen: negative, GBS status: negative, HBsAG: negative, HIV: negative and RPR/VDLR: negative -: Chlamydia screen: not detected and Gonorrhea screen: not detected -: Rubella: immune and Varicella: immune HCT: 33.8 HCAB: negative PAP: Normal 1 hr GTT: 118 Evaluation Evaluation Baseline heart rate: 130 Variability: Moderate (11-25) monitor accelerations: Present monitor decelerations: Absent Contraction Frequency (minutes): 5 Uterine Contraction Intensity: Mild Category of Tracing: I Cervical dilation (cm): 0 Cervical effacement (%): 50 station: -4 Laboratory results: Laboratory Tests 03/04/20 19:10 COVID-19 PCR Negative Comments: Pt not feeling contractions [facility] Medical History (Updated 02/09/20 @ 17:24 by Sadia Anderson DO) Anxiety (Acute) FH: multiple pregnancies (Acute) Leg fracture, left (Acute) Migraine (Acute) No significant family history (Acute) Surgical History [place] teeth extracted (Acute) Family History Mother Diabetes mellitus Hypertension Hyperlipidemia Grandfather No problems noted. Grandmother No problems noted. Grandfather No problems noted. Grandmother Diabetes mellitus Hypertension Brother ADHD Learning disability Social History marital status: pets and animals: Yes (Dog) education level: college (15 years) current occupational exposures/hazards: No special tete needs: No Smoking Status: Never smoker alcohol intake: current substance use type: marijuana (uses for anxiety management : used for 6 weeks before she knew she was pregant.) Meds Home Medications and Allergies Home Medications Medication Instructions Recorded Confirmed Type [id number] fumarate-FA 1 tab PO DAILY 09/05/19 03/04/20 History [] omeprazole 20 mg tablet,delayed 20 mg PO DAILY #30 tab 01/22/20 03/04/20 Rx release Allergies Allergy/AdvReac Type Severity Reaction Status Date / Time No Known Drug Allergies Allergy Verified 03/04/20 19:33 Exam Narrative Exam Narrative: Gen: NAD, sitting comfortably in bed, appears well CV: RRR, no murmurs Resp: clear to auscultation bilaterally Abd: soft, nondistended, nontender, gravid Ext: no edema Objective Labs Labs: Laboratory Results - last 24 hr 03/04/20 19:10 COVID-19 PCR Negative Assessment and Plan Assessment and Plan Assessment and Plan narrative: 25yo at 41w1d here for post-dates IOL. GBS negative, Rh positive. - Expectant management, anticipate . Mother is small in stature, however was 4.5lbs when born at full term and FOB 6.5lbs when born. Fundal height tracking low-normal throughout . Do not anticipate large baby. - FHT reassuring - Pt desires unmedicated . Discussed movement throughout labor, use of tub/shower, etc. - GBS negative, no prophylaxis indicated - Cytotec for IOL now. Pt not feeling contractions on monitor.
[2020-03-04 21:30] LABS: Add Manual Diff / Slide Review NO; Basophils Absolute Auto 100 /uL (0-100); Basophils Percent Auto 0.6 % (0-2); Eosinophils Absolute Auto 100 /uL (0-450); Eosinophils Percent Auto 0.6 % (2-4); Hematocrit 35.6 % (36-46); Lymphocytes Absolute Auto 2000 /uL (1100-4500); Lymphocytes Percent Auto 21.3 % (25-40); Mean Corpuscular HGB Conc 33.6 % (30-36); Mean Corpuscular Hemoglobin 31.6 PG (26-34); Mean Corpuscular Volume 94.1 fL (80-100); Monocytes Absolute Auto 500 /uL (0-900); Monocytes Percent Auto 5.5 % (3-14); Neutrophils Absolute Auto 6900 /uL (1500-7000); Platelet Count 129 X10^3/uL (150-400); Red Blood Cell Count 3.79 X10^6/uL (4.0-5.2); Red Cell Distribution Width 13.6 % (11.6-14.8); White Blood Cell Count 9.5 X10^3/uL (4.5-11.0)
[2020-03-04] MEDS: ZOLPIDEM 5 MG TABLET PO (23:06)
[2020-03-05 00:17] VITALS: BP 113/85
[2020-03-05] MEDS: MORPHINE 2 MG/ML INJ IV (04:30)
[2020-03-05] MEDS: LACTATED RINGERS 1,000 ML 100 ML IV ×2 (09:13→10:30)
--- NOTE | 2020-03-05 09:30 | PM.AN.REGBLK ---
Regional Block Pre-procedure Procedure: Continuous Lumbar Epidural for L&D Attending OB provider: Maura Brunson PMH/SALVADOR narrative: term labor, no complications. Hx: No personal or family history of anesthesia problems. ASA Class: II Labs: Hct 35.6 % (36-46) L 03/04/20 21:15 Plt Count 129 X10^3/uL (150-400) L 03/04/20 21:15 Medications: Current Medications Generic Name Dose Route Start Last Admin Trade Name Freq PRN Reason Stop Dose Admin Acetaminophen 650 mg 03/04/20 18:15 Tylenol PO Q4HR PRN Fever/Mild Pain (1-3) Diphenhydramine HCl 25 mg 03/05/20 09:14 Benadryl IV Q10M PRN Pruritis Lactated Ringer's 1,000 mls @ 100 mls/hr 03/04/20 18:15 Lactated Ringers IV CONT LILLIAN FENT 2MCG/ML BUPIV 0.125% EPI 200 mcg in 100 mls @ 6 mls/hr 03/05/20 09:15 Fentanyl/Bupiv/Ns 2mcg/Ml - 0.125% EPIDURAL CONT LILLIAN Misoprostol 25 mcg 03/04/20 18:15 03/04/20 18:56 Cytotec VAG 25 mcg Q4HR PRN Administration Cervical Ripening Morphine Sulfate 2 mg 03/04/20 18:15 03/05/20 04:30 Morphine IV 2 mg Q4HR PRN Administration Pain, Moderate (4-6) Zolpidem Tartrate 5 mg 03/04/20 18:15 03/04/20 23:06 Ambien PO 5 mg BEDTIME PRN Administration Sleep Allergies: Allergies Allergy/AdvReac Type Severity Reaction Status Date / Time No Known Drug Allergies Allergy Verified 03/04/20 19:33 Procedure Insertion date: 03/05/20 Insertion time: 10:40 Prep/Local: betadine x3 Interspace: L2-3 Patient position: sitting Needle: 18 gauge Hustead (27g Pencan through Hustead, clear CSF. 1mL 0.25% MPF bupiv) Loss of resistance with: saline DARNELL at (cm): 4 Catheter placed at SKIN (cm): 9 Catheter in SPACE (cm): 5 Insertion: No Blood, No Paresthesia with insertion, No Paresthesia with injection and No Test dose reaction Initial Medications TEST DOSE time: 10:47 TEST DOSE: 1.5% lidocaine with epinephrine 1:200k (mL): 3 BOLUS DOSE time: 10:52 BOLUS DOSE (mL): 3 BOLUS DOSE med: 0.125% bupivacaine with fentanyl 10 mcg/mL (infusate, PCEA bolus) Infusion INFUSION: 0.125% bupivacaine and with fentanyl 2 mcg/mL Initial rate (mL/hr): 8 Subsequent interventions: 16:00 one sided block; 4mL 2% chloroprocaine with 50mcg fentanyl. 17:40 discomfort with bean, resolves briefly with PCEA. Given 4mL 0.25% bupiv with 50mcg fentanyl, rate increased to 10mL/h. 18:51 10mL 2% lido preparing for OR, maternal HTN and tachycardia to 180's Post-procedure Anesthesia time START: 10:40 Anesthesia time END: 18:58
--- NOTE | 2020-03-05 09:33 | PM.OBPNLAB ---
Date/Time Date Patient Seen: 03/05/20 Time Patient Seen: 08:00 Pelvic Exam Dilation (cm): 2 Effacement (%): 90 station: -1 Amniotic membrane status: Ruptured Comments: AROM performed with production of clear fluid Contractions Monitor mode: External Contraction frequency (min): 4 Contraction pattern: Irregular Contraction intensity: Mild Status status: Category l Heart Rate Baseline: 130 Monitor Accelerations: Present Monitor Decelerations: Absent Monitor Variability: Moderate Assessment and Plan Comments: 25yo at 41w1d here for post-dates IOL. Received one dose of cytotec overnight with good cervical change. Brock score now 10. AROM performed with production of clear fluid. GBS negative, Rh positive. - Expectant management, anticipate - FHT reassuring - Epidural for pain control if pt desires. Did receive morphine overnight. - GBS negative, no prophylaxis indicated - Will monitor for contraction frequency. Start pitocin if not adequate.
[2020-03-05] MEDS: OXYTOCIN PREMIX 30 UNIT/500 ML PLAST..BAG IV (11:30)
--- NOTE | 2020-03-05 17:46 | PM.OBPNLAB ---
Date/Time Date Patient Seen: 03/05/20 Time Patient Seen: 04:40 Pain Control Pain control: epidural Pelvic Exam Dilation (cm): 4 Effacement (%): 90 station: -1 Amniotic membrane status: Ruptured Contractions Monitor mode: External Pitocin rate (mU/min): 11 Contraction frequency (min): 2 Contraction duration (min): 1 Contraction pattern: Irregular Contraction intensity: Mild Intrauterine tone measurement: 250 Status status: Category l Heart Rate Baseline: 150 Monitor Accelerations: Present Monitor Decelerations: Early Monitor Variability: Moderate Assessment and Plan Comments: 25yo at 41w2d here for post-dates IOL. Received one dose of cytotec overnight with good cervical change. AROM performed with production of clear fluid. Pitocin intiated. Now with relatively minimal cervical change. IUPC to assist in monitoring timing of contractions and help determine adequacy due to limited cervical change. Does have some caput on exam, and early decelerations, concerning for cephalopelvic disproportion. Adequate contractions. GBS negative, Rh positive. - Expectant management, anticipate . Pt not yet in active phase at only 4cm, however with very limited change since this morning. Will continue to monitor closely. - FHT reassuring - Epidural for pain control in place - GBS negative, no prophylaxis indicated - Continue pitocin, titrate as tolerated and needed for adequate contractions
[2020-03-05] MEDS: FENT 2MCG/ML BUPIV 0.125% EPI 200 MCG/100 ML PLAST..BAG 6 MCG EPIDURAL (17:56)
--- NOTE | 2020-03-05 18:47 | PM.PREOP ---
Pre-operative Note COVID-19 COVID-19 status: Negative Result date/Date tested (Pos, Neg/Pending): 03/04/20 Interval Note History & Physical reviewed/Exam performed by Physician: Yes Changes to H&P: No
[2020-03-05 18:48] LABS: Add Manual Diff / Slide Review NO; Basophils Absolute Auto 100 /uL (0-100); Basophils Percent Auto 0.4 % (0-2); Eosinophils Absolute Auto 0 /uL (0-450); Hematocrit 33.4 % (36-46); Hemoglobin 11.3 g/dL (12.0-16.0); Lymphocytes Absolute Auto 1200 /uL (1100-4500); Mean Corpuscular HGB Conc 33.8 % (30-36); Mean Corpuscular Hemoglobin 31.3 PG (26-34); Mean Corpuscular Volume 92.6 fL (80-100); Monocytes Absolute Auto 800 /uL (0-900); Monocytes Percent Auto 5.1 % (3-14); Neutrophils Absolute Auto 13000 /uL (1500-7000); Neutrophils Percent Auto 86.5 % (50-75); Platelet Count 112 X10^3/uL (150-400); Red Blood Cell Count 3.61 X10^6/uL (4.0-5.2); Red Cell Distribution Width 13.9 % (11.6-14.8)
--- NOTE | 2020-03-05 18:56 | P.PNOB_ITS ---
Date/Time Date Patient Seen: 03/05/20 Time Patient Seen: 18:00 Pain Control Pain control: epidural Pelvic Exam Dilation (cm): 5 Effacement (%): 90 station: -1 Amniotic membrane status: Ruptured Contractions Monitor mode: External Contraction frequency (min): 3 Contraction pattern: Irregular Contraction intensity: Mild Status status: Category l Heart Rate Baseline: 180 Monitor Accelerations: Absent Monitor Decelerations: Late Monitor Variability: Moderate Comments: recurrent late decels with intermittent early decels Assessment and Plan Comments: 25yo at 41w2d here for post-dates IOL. Received one dose of cytotec overnight with good cervical change. AROM performed with production of clear fluid. Pitocin intiated. IUPC placed due to minimal change, showing adequate contraction pattern. Pt then with approximately 1cm cervical change. IUPC discontinued due to pt discomfort, knowing that contraction pattern was adequate. heart rate gradually rising, now with relatively sudden increase to the 180s and sustaining. No maternal fever indicative of chorioamnionitis. Also now with recurrent late decels. Due to this, with cervix still at 5cm and the pt remote from delivery, the decision was made to proceed with primary for nonreassuring heart tones. Of note, the pts blood pressure was also noted to be elevated > 140/90 repeatedly. Lab work did reveal pre-eclampsia with elevated Pr/Cr ratio, without HELLP (platelets low but other values normal range). The pt and her were consented for surgery. Discussed risks including but not limited to hemorrhage, infection, damage to other organs such as the bowel and bladder, injury to the fetus. The pt is agreeable to blood transfusio n if medically indicated. all questions were answered. The consent was signed and placed in the chart. The pt will receive 2g Ancef prior to surgery.
[2020-03-05 19:02] LABS: Alanine Aminotransferase 14 IU/L (<35); Albumin 3.3 g/dL (3.5-5.0); Albumin Globulin Ratio 1.1 (1.0-2.8); Alkaline Phosphatase 295 U/L (38-126); Aspartate Aminotransferase 26 IU/L (14-36); BUN Creatinine Ratio 14.3 (6-22); Bilirubin Total 0.6 mg/dL (0.2-1.3); Blood Urea Nitrogen 7 mg/dL (7-17); Calcium 9.3 mg/dL (8.4-10.2); Carbon Dioxide 19 mmol/L (22-32); Chloride 104 mmol/L (98-107); Estimated Glomerular Filt Rate > 60.0 mL/min (>60); Globulin 3.1 g/dL (1.7-4.1); Glucose 84 mg/dL (70-100); HEMOLYSIS < 15 (0-50); Potassium 3.9 mmol/L (3.4-5.1); Sodium 132 mmol/L (137-145); Total Protein 6.4 g/dL (6.3-8.2); Uric Acid 5.9 mg/dL (2.5-6.2)
[2020-03-05] MEDS: CEFAZOLIN 2 GM/100 ML FROZ.PIGGY IV (19:02)
[2020-03-05 19:11] LABS: Creatinine Urine Random 58.1 mg/dL; Protein (Total) Urine Random 19 mg/dL (0-12); Protein Creatinine Ratio Urine 0.32 GRAM/24H
--- NOTE | 2020-03-05 19:24 | SUR.OPER ---
Supine on Padded OR bed, head on pillow, safety belt at thigh, arms secured on padded arm boards at <90 degrees abduction. Bump under right buttock. Legs uncrossed with pillow under knees, gel pad to heels, tape over blanket to lower legs.
--- NOTE | 2020-03-05 19:36 | SUR.OPER ---
live female at 192. APGARS8/9
[2020-03-05 20:04] LABS: pH Cord Arterial Blood 7.21 (7.14-7.38)
[2020-03-05 20:05] LABS: Base Excess Cord Arterial Bld -7 (-9.0-2.2); Cord Venous Blood PCO2 39.5 (27-56); Cord Venous Blood PO2 21 (17-41); Cord Venous Blood pH 7.286 (7.25-7.45); HCO3 Cord Arterial Blood 21.1 (17-27); HCO3 Cord Venous Blood 18.8 (12-28); O2 Saturation Cord Venous Bld 30 (14-75); Oxygen Sat Cord Arterial Blood 7 (5-59); PO2 Cord Arterial Blood 10 (6-30)
[2020-03-05] MEDS: ACETAMINOPHEN IV 1,000 MG/100 ML VIAL 400 MG IV (20:12)
[2020-03-05 20:28] VITALS: BP 139/98; PULSE 104; RESP 13; TEMP 37.6; O2SAT 98
[2020-03-05 20:33] VITALS: BP 129/92; PULSE 98; RESP 16; O2SAT 99
[2020-03-05 20:38] VITALS: BP 136/96; PULSE 97; RESP 20; O2SAT 97
[2020-03-05 20:43] VITALS: BP 141/95; PULSE 94; RESP 16; O2SAT 98
[2020-03-05] MEDS: ONDANSETRON 4 MG/2 ML INJ IV (20:44)
--- NOTE | 2020-03-05 20:47 | P.OP_ITS ---
Operative Date/Time/Diagnoses Date of procedure: 03/05/20 Time of procedure: 19:00 Pre-op diagnosis: 41w2d gestation Nonreassuring heart tones Pre-eclampsia without severe features Post-op diagnosis: same Procedure & Clinicians Procedure: Primary Same procedure as scheduled: Yes Indications: Nonreassuring heart tones Surgeon: Maura Brunson Senior Solutions Engineer: Sadia Anderson Click Yes if Unassisted: No Anesthesia Type: Epidural Operative Notes Findings: Normal uterus, ovaries, and tubes Closure Type: primary Specimen(s): none sent Applied: catheter Estimated Blood Loss (mL): 400 Blood products transfused: none Procedure in detail: PREOP DIAGNOSES: Intrauterine 41w2d Pre-eclampsia without severe features Nonreassuring heart tones POSTOPERATIVE DIAGNOSES: Same as above plus - Meconium stained amniotic fluid OPERATIVE COURSE: The patient was taken to the operating room where epidural anesthesia was found to be adequate. She was then prepared and draped in the normal sterile fashion in the dorsal supine position with a leftward tilt. Anesthesia was tested and found to be adequate. A Pfannensteil skin incision was then made with the scalpel and carried through to the underlying layer of fascia with the scalpel. The fascia was incised in the midline and the incision extended laterally with the Jones scissors. The superior aspect of the fascial incision was then grasped with Alvarez clamps, elevated, and the underlying rectus muscles dissected off bluntly and sharply where needed. Attention was then turned to the inferior aspect of the incision which, in a similar fashion, was grasped, tented up with Alvarez clamps, and the rectus muscle dissected off bluntly and sharply with Jones scissors. The rectus muscles were then in the midline, and the peritoneum was identified and entered bluntly. The peritoneal incision was then extended with good visualization of the bladder. The bladder blade was then inserted and the vesicouterine peritoneum identified, grasped with pick-ups and entered sharply with the Metzenbaum scissors. The incision was then extended laterally and the bladder flap created digitally. The bladder blade was then reinserted and the lower uterine segment incised in a transverse fashion with the scalpel. The uterine incision was then extended superolaterally by pulling superolaterally on both sides. Fluid was noted to be meconium-stained. The bladder blade was removed the infant's head was flexed out of OA position and delivered atraumatically. The nose and mouth were suctioned with bulb suction and the cord was clamped and cut. The infant was handed off to the waiting nursing staff. Cord blood was collected for Rh status. Cord gases were sent. The placenta was then delivered with gentle cord traction. The uterus was then cleared of all clots and debris. The uterine incision was repaired with O- Vicryl in a running, locked fashion. A second layer of the same suture was used for imbrication. Multiple [id number] with O-Vicyrl and then 2-O Chromic were used on the right side of the incision for hemostasis. The gutters were cleared of all clots. Hysterotomy was investigated and found to be hemostatic. The peritoneum was closed with 3-O Vicryl. The fascia was reapproximated with O-Vicryl in a running fashion. The subcutaneous tissue was reapproximated with 3-O Vicryl. The skin was closed with 4-O Vicryl. Of note, the pt did receive 3x doses of 5mg IV Labetalol intraoperatively from anesthesia. Her blood pressures were reportedly never in severe range, however. ROM APPEARANCE: Meconium-stained BABY A DELIVERY TIME: 19:23 BABY A OUTCOME: Viable BABY A SEX: Female BABY A WEIGHT: 7lb8oz BABY A NUCHAL CORD: x1 BABY A # CORD VESSELS: 3 BABY A 1 MINUTE: 8 BABY A 5 MINUTES: 9 PLACENTA DELIVERY TIME: 19:24 PLACENTAL DELIVERY TYPE: Spontaneous PLACENTA APPEARANCE: Intact SPONGE AND NEEDLE COUNTS: Correct x3. DRESSING: Aquacel ANTICOAGULATION: SCDs applied prior to Surgery: Yes Preop antibiotics given (see MAR). The patient was taken to recovery room having tolerated procedure well. Complications: none Post-operative Condition: stable Disposition: PACU Plan for aftercare: Normal /postoperative care
[2020-03-05] MEDS: KETOROLAC 30 MG/ML VIAL IV (22:05)
[2020-03-06] MEDS: KETOROLAC 30 MG/ML VIAL IV ×3 (03:56→16:39)
[2020-03-06 06:23] LABS: Add Manual Diff / Slide Review NO; Basophils Absolute Auto 0 /uL (0-100); Basophils Percent Auto 0.2 % (0-2); Eosinophils Absolute Auto 0 /uL (0-450); Hematocrit 26.9 % (36-46); Hemoglobin 9.1 g/dL (12.0-16.0); Lymphocytes Absolute Auto 1500 /uL (1100-4500); Lymphocytes Percent Auto 8.9 % (25-40); Mean Corpuscular HGB Conc 33.7 % (30-36); Mean Corpuscular Hemoglobin 31.4 PG (26-34); Mean Corpuscular Volume 93.1 fL (80-100); Monocytes Absolute Auto 800 /uL (0-900); Monocytes Percent Auto 4.8 % (3-14); Neutrophils Absolute Auto 14900 /uL (1500-7000); Neutrophils Percent Auto 86.1 % (50-75); Platelet Count 101 X10^3/uL (150-400); Red Blood Cell Count 2.89 X10^6/uL (4.0-5.2); Red Cell Distribution Width 13.9 % (11.6-14.8); White Blood Cell Count 17.4 X10^3/uL (4.5-11.0)
--- NOTE | 2020-03-06 07:37 | PM.OBPN.1 ---
Subjective - OB Subjective Date Patient Seen: 03/06/20 Time Patient Seen: 12:30 Interval history: The pt is doing well this morning. Her bean was removed recently, and she has not yet voided. She has been ambulating without difficulty. She is passing flatus. Her lochia is appropriate. Her pain is well controlled. She is with a nipple shield. Exam Vital Signs (past 8 hours): Oxygen Delivery Method Room Air Narrative Exam Narrative: Gen: NAD, sitting comfortably in bed, appears well CV: RRR, no murmurs Resp: clear to auscultation bilaterally Abd: soft, appropriately tender, slightly tympanic and distended, fundus firm and below the umbilicus, minimal distension, normoactive bowel sounds, dressing c/d/i Ext: no edema Objective Labs Result Diagrams: 03/06/20 06:10 03/05/20 18:41 Labs: Laboratory Results - last 24 hr 03/05/20 03/05/20 03/05/20 18:38 18:41 18:41 WBC 15.0 H D RBC 3.61 L Hgb 11.3 L Hct 33.4 L MCV 92.6 MCH 31.3 MCHC 33.8 RDW 13.9 Plt Count 112 L Neut % (Auto) 86.5 H Lymph % (Auto) 8.0 L [place] % (Auto) 5.1 Eos % (Auto) 0.0 L Baso % (Auto) 0.4 Neut # (Auto) 17438 H Lymph # (Auto) 1200 [place] # (Auto) 800 Eos # (Auto) 0 Baso # (Auto) 100 Cord ABG pH Cord ABG pCO2 Cord ABG pO2 Cord ABG HCO3 Cord ABG Base Excess Cord ABG O2 Sat Cord VBG pH Cord VBG pCO2 Cord VBG pO2 Cord VBG HCO3 Cord VBG Base Excess Cord VBG O2 Sat Sodium 132 L Potassium 3.9 Chloride 104 Carbon Dioxide 19 L BUN 7 Creatinine 0.49 L Estimated GFR > 60.0 BUN/Creatinine Ratio 14.3 Glucose 84 Uric Acid 5.9 Calcium 9.3 Total Bilirubin 0.6 AST 26 ALT 14 Alkaline Phosphatase 295 H Total Protein 6.4 Albumin 3.3 L Globulin 3.1 Albumin/Globulin Ratio 1.1 U Random Total Protein 19 H Urine Creatinine 58.1 Protein/Creatinin Ratio 0.32 03/05/20 03/06/20 19:31 06:10 WBC 17.4 H RBC 2.89 L Hgb 9.1 L Hct 26.9 L MCV 93.1 MCH 31.4 MCHC 33.7 RDW 13.9 Plt Count 101 L Neut % (Auto) 86.1 H Lymph % (Auto) 8.9 L [place] % (Auto) 4.8 Eos % (Auto) 0.0 L Baso % (Auto) 0.2 Neut # (Auto) 79150 H Lymph # (Auto) 1500 [place] # (Auto) 800 Eos # (Auto) 0 Baso # (Auto) 0 Cord ABG pH 7.21 Cord ABG pCO2 53.0 Cord ABG pO2 10 Cord ABG HCO3 21.1 Cord ABG Base Excess -7 Cord ABG O2 Sat 7 Cord VBG pH 7.286 Cord VBG pCO2 39.5 Cord VBG pO2 21 Cord VBG HCO3 18.8 Cord VBG Base Excess -8.00 L Cord VBG O2 Sat 30 Sodium Potassium Chloride Carbon Dioxide BUN Creatinine Estimated GFR BUN/Creatinine Ratio Glucose Uric Acid Calcium Total Bilirubin AST ALT Alkaline Phosphatase Total Protein Albumin Globulin Albumin/Globulin Ratio U Random Total Protein Urine Creatinine Protein/Creatinin Ratio Assessment & Plan Assessment and Plan (1) S/P : Status: Acute (2) Pre-eclampsia: Status: Acute (3) Non-reassuring heart rate or rhythm affecting management of fetus: Status: Acute Plan Comments: 25yo POD#1 s/p primary for nonreassuring heart tones. Immediately prior to surgery, pt also diagnosed with pre-eclampsia based on elevated BPs and Pr/Cr ratio. She received a total of 15mg Labetalol intraoperatively, with nonsevere range BPs, and her BPs have since normalized. FHT with rising baseline prior to delivery, and pt is noted to have elevated WBC count, however no confirmed fevers. Pt doing well overall postoperatively. - Normal care - support - Continue to monitor BPs closely, and for elevated temperatures Time Spent With Patient Time: Total time spent is greater than 50% in coordination of care (as documented) at patient's floor/unit and/or counseling patient: Time with patient: 25 - 35 minutes
[2020-03-06] MEDS: PRENATAL VIT,CALC/IRON/FOLIC 1 TABLET 1 TAB PO (10:31)
[2020-03-06] MEDS: DOCUSATE 250 MG CAPSULE PO (10:31)
[2020-03-06] MEDS: LANOLIN OINT 7 GM 1 APPLIC TOP (14:41)
[2020-03-06] MEDS: OXYCODONE IR 10 MG TABLET PO (14:41)
[2020-03-06] MEDS: IBUPROFEN 600 MG TABLET PO (22:26)
[2020-03-06] MEDS: ACETAMINOPHEN 325 MG TABLET 650 MG PO (23:52)
[2020-03-07] MEDS: IBUPROFEN 600 MG TABLET PO (04:10)
[2020-03-07] MEDS: OXYCODONE IR 10 MG TABLET PO (04:10)
--- NOTE | 2020-03-07 08:51 | PM.DS.1 ---
History of Present Illness History of Present Illness Chief complaint: Labor & Delivery Discharge Providers Provider Date of admission: 03/04/20 18:07 Discharge Date: 03/07/20 Primary care physician: Elliot Santos MD Consults: 03/05/20 21:16 Consult to Hardware Supplies Sales Representative Routine Comment: Discharge provider: Elliot Santos MD Summary Hospital Course Discharge Diagnosis: Delivery of viable female via Hospital Course: Routine care Status at Discharge Cognitive/behavioral status at discharge: oriented Functional status at discharge: independent ambulation Overall status at discharge: patient is back to baseline Exam Vital Signs (past 8 hours): Oxygen Delivery Method Room Air Narrative Exam Narrative: General: Alert no apparent distress. Affect is appropriate. Markos it is uncomfortable. HEENT: Neck is supple without lymphadenopathy pupils equal round and reactive. Cardio: S1-S2 regular rate and rhythm. Respiratory: Lungs clear to auscultation. Abdomen: Uterus firm. Incision clean dry and intact. Extremities: Normal deep tendon reflexes trace edema. Objective Labs Result Diagrams: 03/06/20 06:10 03/05/20 18:41 Discharge Plan Discharge Plan Patient Disposition: Home Discharge orders & Medications Prescriptions: New ibuprofen 600 mg Tablet 600 mg PO Q6HR PRN (Reason: Fever/Mild Pain (1-3)) Qty: 30 RF: 0 docusate sodium 250 mg Capsule 250 mg PO DAILY Qty: 20 RF: 0 oxycodone-acetaminophen [Percocet] 5-325 mg tablet 1 tab PO TID PRN (Reason: pain) Qty: 30 RF: 0 Continued omeprazole 20 mg tablet,delayed release (DR/EC) 20 mg PO DAILY Qty: 30 RF: 1 28-800 mg-mcg Tablet 1 tab PO DAILY RF: 0 Follow up/Referrals: Elliot Santos MD [Primary Care Provider] - Diet/Activity/Treatments Diet: Diet as Tolerated Activity: no heavy lifting for the 1st 2 weeks Skin/Wound/Dressing Care Report to your healthcare provider any signs of infection, such as:: chills, fever, night sweats, increased pain, unusual drainage and unusual redness Visit Report/Discharge Packet Visit Report Forms: Patient Portal/API, Stroke Signs & Symptoms Discharge Data Primary Care Provider: Elliot Santos
[2020-03-07] MEDS: PRENATAL VIT,CALC/IRON/FOLIC 1 TABLET 1 TAB PO (09:11)
[2020-03-07] MEDS: DOCUSATE 250 MG CAPSULE PO (09:11)
[2020-03-07 12:39] VITALS: BP 141/95; PULSE 94; RESP 16; TEMP 37.6
== END 2020-03-07 11:25 | disposition home or self-care (01) | DRG 788 ==
PROVIDERS: Admitting Provider Family Medicine; PCP Family Medicine; Referring Provider Family Medicine; Visit Provider Family Medicine
PROC: 10D00Z1 Extraction of Products of Conception, Low, Open Approach (ICD-10-PCS; CPT 59514; principal; 2020-03-05 19:00)
DX: O14.04 Mild to moderate pre-eclampsia, complicating childbirth (principal); O76 Abnormality in fetal heart rate and rhythm complicating labor and delivery; O77.0 Labor and delivery complicated by meconium in amniotic fluid; O48.0 Post-term pregnancy; Z3A.41 41 weeks gestation of pregnancy; Z37.0 Single live birth
CPT/HCPCS: 01967; 01968; 36415; 59050; 59200; 59510; 59514; 59515; 80053; 82570; 82803; 84156; 84550; 85025; 86850; 86900; 86901; 87635; G0379; J0131; J0690; J1885; J2270; J2274; J2405; J2590; J2704; J3010

== ENCOUNTER → 2020-03-27 16:07 | Outpatient (CLI) | payer OTHER, MEDICAID, SELFPAY | PROVIDERS: PCP Family Medicine; Visit Provider Family Medicine | DX: S31.109A Unspecified open wound of abdominal wall, unspecified quadrant without penetration into peritoneal cavity, initial encounter (principal); Z98.891 History of uterine scar from previous surgery | CPT/HCPCS: 87070; 87075; 87077; 87186; 87205 ==

== ENCOUNTER → 2021-02-26 09:36 | Outpatient (CLI) | payer OTHER, MEDICAID, SELFPAY ==
--- NOTE | 2021-02-26 09:39 | DI.US.S_ITS ---
ULTRASOUND OF RIGHT BREAST AND AXILLA: 02/26/2021 CLINICAL: Palpable right axilla lump. No prior exams were available for comparison. Color flow and real-time ultrasound of the right breast axilla were performed. Dickey scale images of the real-time examination were reviewed. There is a normal lymph node in the right axilla that is an incidental finding as it did not correlate with palpable area of patient concern. No significant abnormalities were seen sonographically in the right axilla. IMPRESSION: BENIGN There is no sonographic evidence of malignancy. There is no abnormality seen in the right axilla to correspond with the area of clinical concern and palpable abnormality in the right axilla, however, recommend clinical follow up for persistent or worsening symptoms, or development of any clinically suspicious findings. Recommend initiating routine screening mammograms at age 40. Findings and recommendations were conveyed to the patient during today's evaluation. This exam was interpreted at Station ID: [id number]. Electronically Signed By: Joe Stanton M.D. at/:02/26/2021 10:36:52 letter sent: Followup Recommended Ultrasound BI-RADS: 2 Benign
== END ==
PROVIDERS: PCP Family Medicine; Referring Provider Family Medicine; Visit Provider Family Medicine
DX: R22.31 Localized swelling, mass and lump, right upper limb; N63.31 Unspecified lump in axillary tail of the right breast
CPT/HCPCS: 76882

== ENCOUNTER → 2021-05-31 08:32 | Outpatient (CLI) | payer OTHER, MEDICAID, SELFPAY | PROVIDERS: PCP Family Medicine; Referring Provider Nurse Practitioner; Visit Provider Nurse Practitioner | DX: R30.0 Dysuria (principal) | CPT/HCPCS: 81002; 87077; 87086; 87186; 87210 ==

== ENCOUNTER → 2021-12-09 14:53 | Outpatient (CLI) | payer OTHER, MEDICAID, SELFPAY ==
[2021-12-09 17:22] LABS: HCG Quantitative /Beta subunit 8.4 mIU/mL
== END ==
PROVIDERS: PCP Family Medicine; Referring Provider Family Medicine; Visit Provider Family Medicine
DX: N93.9 Abnormal uterine and vaginal bleeding, unspecified (principal)
CPT/HCPCS: 36415; 84702

== ENCOUNTER → 2021-12-12 10:50 | Outpatient (CLI) | payer OTHER, MEDICAID, SELFPAY ==
[2021-12-12 11:50] LABS: HCG Quantitative /Beta subunit 31.9 mIU/mL
== END ==
PROVIDERS: PCP Family Medicine; Referring Provider Family Medicine; Visit Provider Family Medicine
DX: N91.2 Amenorrhea, unspecified (principal)
CPT/HCPCS: 36415; 84702

== ENCOUNTER → 2021-12-19 08:37 | Outpatient (CLI) | payer OTHER, MEDICAID, SELFPAY ==
[2021-12-19 10:27] LABS: HCG Quantitative /Beta subunit 130.6 mIU/mL
== END ==
PROVIDERS: PCP Family Medicine; Referring Provider Family Medicine; Visit Provider Family Medicine
DX: N91.2 Amenorrhea, unspecified (principal)
CPT/HCPCS: 36415; 84702

== ENCOUNTER → 2021-12-26 09:41 | Outpatient (CLI) | payer OTHER, MEDICAID, SELFPAY | PROVIDERS: PCP Family Medicine; Referring Provider Family Medicine; Visit Provider Family Medicine | DX: N91.2 Amenorrhea, unspecified (principal) | CPT/HCPCS: 36415; 84702 ==

== ENCOUNTER 2021-12-28 08:12 | Emergency (ER) | payer BC, OTHER, MEDICAID, SELFPAY ==
[2021-12-28 08:13] VITALS: BP 166/89; PULSE 98; RESP 18; TEMP 36.8; O2SAT 99; BMI 25.4
--- NOTE | 2021-12-28 08:23 | ED.GENADULT ---
HPI - General Adult General Chief complaint: Vaginal Bleeding Stated complaint: possible miscarriage Time Seen by Provider: 12/28/21 08:13 Source: patient Mode of arrival: Ambulatory Limitations: no limitations History of Present Illness HPI narrative: Patient is a 26-year-old otherwise healthy but a positive test on December 04. She is Rh positive. Here for evaluation of 2 days of vaginal bleeding and lower abdominal cramping and lower back pain. No urinary symptoms. No fevers. No nausea vomiting. Contacted her OB providers nurse line who advised she come to the emergency department. She states that her primary OB provider has been checking her hormone levels. On 12/26/2021 which was 2 days ago her hCG quant level was 226. Related Data Home Medications Medication Instructions Recorded Confirmed vit no.133-ferrous 1 tab PO DAILY 09/05/19 09/19/21 fumarate 28 mg-folic acid 800 mcg tablet () Previous Rx's Medication Instructions Recorded norelgestromin 150 mcg-e.estradiol 1 patch TRANSDERMAL Q7D #3 ea 09/19/21 35 mcg/24 hr weekly transderm patch (Xulane) Allergies Allergy/AdvReac Type Severity Reaction Status Date / Time No Known Drug Allergies Allergy Verified 09/19/21 14:53 Review of Systems Constitutional Constitutional: Denies fever(s) Gastrointestinal Gastrointestinal: Reports as per HPI and Reports system reviewed and no additional complaints, except as documented Genitourinary Genitourinary: Reports system reviewed and no additional complaints, except as documented and Reports as per HPI Musculoskeletal Musculoskeletal: Reports system reviewed and no additional complaints, except as documented Integumentary/Breasts Skin/Breast: Reports system reviewed and no additional complaints, except as documented Hematologic/Lymphatic On Anticoagulants: No Patient History Medical History Anxiety FH: multiple pregnancies Leg fracture, left Migraine No significant family history Onychomycosis Surgical History [place] teeth extracted Family History Mother Diabetes mellitus Hypertension Hyperlipidemia Grandfather No problems noted. Grandmother No problems noted. Grandfather No problems noted. Grandmother Diabetes mellitus Hypertension Brother ADHD Learning disability Social History marital status: pets and animals: Yes (Dog) education level: college (15 years) current occupational exposures/hazards: No special tete needs: No Smoking Status: Never smoker alcohol intake: current substance use type: marijuana (uses for anxiety management : used for 6 weeks before she knew she was pregant.) Smoking Status: Never smoker alcohol intake frequency: 0-2 drinks per day Substance Use Type: does not use Exam Initial Vital Signs Initial Vital Signs: Vital Signs Temperature 98.3 F 12/28/21 08:13 Pulse Rate 98 H 12/28/21 08:13 Respiratory Rate 18 12/28/21 08:13 Blood Pressure 166/89 H 12/28/21 08:13 Pulse Oximetry 99 12/28/21 08:13 Const General: cooperative and healthy appearing HENMT Head: normal to inspection and normocephalic Resp Effort & Inspection: normal respiratory effort Auscultation: clear to auscultation bilaterally Cardio Rate: regular rate Rhythm: regular rhythm GI Palpation: soft, No firm and tender (Lower midline) Back/Spine/Pelvis Other: Lower lumbar midline tenderness Skin General: no rashes or lesions noted Neuro General: patient alert, patient awake and moves all extremities Extrem General: normal to inspection and capillary refill normal Psych Appearance: grossly normal and well kempt Course Orders Ordered: ED Orders 12/28/21 08:25 Basic Metabolic Panel Stat Complete Blood Count AUTO DIFF Stat HCG Quantitative /Beta subunit Stat 12/28/21 09:00 Urinalysis and Microscopic Stat Vital Signs Vital signs: Vital Signs - 8 hr 12/28/21 08:13 12/28/21 08:41 12/28/21 09:00 Temperature 98.3 F Pulse Rate 98 H 78 73 Respiratory Rate 18 24 21 Blood Pressure 166/89 H 117/65 Pulse Oximetry 99 95 96 Medical Decision Making Lab Data Lab results reviewed: Yes I reviewed the patient's lab results. Result diagrams: 12/28/21 08:25 12/28/21 08:25 Labs: Lab Results 12/28/21 12/28/21 Range/Units 08:25 08:25 WBC 9.2 (4.5-11.0) X10^3/uL RBC 4.30 (4.0-5.2) X10^6/uL Hgb 13.8 (12.0-16.0) g/dL Hct 39.9 (36-46) % MCV 92.9 (80-100) fL MCH 32.1 (26-34) PG MCHC 34.5 (30-36) % RDW 12.6 (11.6-14.8) % Plt Count 214 (150-400) X10^3/uL Neut % (Auto) 59.8 (50-75) % Lymph % (Auto) 32.8 (25-40) % [place] % (Auto) 5.9 (3-14) % Eos % (Auto) 0.8 L (2-4) % Baso % (Auto) 0.7 (0-2) % Neut # (Auto) 5500 (6842-5081) /uL Lymph # (Auto) 3000 (4495-8101) /uL [place] # (Auto) 500 (0-900) /uL Eos # (Auto) 100 (0-450) /uL Baso # (Auto) 100 (0-100) /uL Sodium 142 (137-145) mmol/L Potassium 3.9 (3.4-5.1) mmol/L Chloride 106 (98-107) mmol/L Carbon Dioxide 25 (22-32) mmol/L BUN 13 (7-17) mg/dL Creatinine 0.65 (0.52-1.04) mg/dL Estimated GFR > 60 (>60) mL/min BUN/Creatinine Ratio 20.0 (6-22) Glucose 100 (70-100) mg/dL Calcium 9.7 (8.4-10.2) mg/dL HCG, Quant 324.4 mIU/mL MDM Narrative Medical decision making narrative: Patient is Rh positive. Her quantitative beta hCG level is well below threshold or we would expect to see anything from ultrasound. Based on her presentation I do feel that ectopic is unlikely and more consistent with a threatened miscarriage. The beta hCG level today has not doubled from 2 days ago but it did increase. I had a discussion with the patient and her at bedside. We did discuss these levels. Informed her that on Thursday she should have her beta-hCG repeated and this could either be done by her primary OB provider or the emergency department. She was given strict return precautions. She expressed understanding and agreement. Discharge Plan Departure Patient Disposition: Home Clinical Impression: Threatened miscarriage Instructions: DI for Vaginal Bleeding During Activity Restrictions/Additional Instructions: Continue to take all of your vitamins as directed. On Thursday you should be re-evaluated. You can contact your primary OB provider for this or return to the emergency department. Also recommend that you return to the emergency department sooner if you are bleeding more than several pads an hour for several hours in a row or the started develop fevers or any other new or worsening symptoms. Prescriptions: No Action Xulane 150-35 mcg/24 hr patch weekly 1 patch transdermal Q7D Qty: 3 1RF Rx Instructions: apply once weekly for 3 weeks of a 4-week cycle 28-800 mg-mcg Tablet 1 tab PO DAILY 0RF Referrals: Elliot Santos MD [Primary Care Provider] -
[2021-12-28 08:38] LABS: Add Manual Diff / Slide Review NO; Basophils Absolute Auto 100 /uL (0-100); Basophils Percent Auto 0.7 % (0-2); Eosinophils Absolute Auto 100 /uL (0-450); Eosinophils Percent Auto 0.8 % (2-4); Hematocrit 39.9 % (36-46); Hemoglobin 13.8 g/dL (12.0-16.0); Lymphocytes Absolute Auto 3000 /uL (1100-4500); Lymphocytes Percent Auto 32.8 % (25-40); Mean Corpuscular HGB Conc 34.5 % (30-36); Mean Corpuscular Hemoglobin 32.1 PG (26-34); Mean Corpuscular Volume 92.9 fL (80-100); Monocytes Absolute Auto 500 /uL (0-900); Monocytes Percent Auto 5.9 % (3-14); Neutrophils Absolute Auto 5500 /uL (1500-7000); Neutrophils Percent Auto 59.8 % (50-75); Platelet Count 214 X10^3/uL (150-400); Red Cell Distribution Width 12.6 % (11.6-14.8); White Blood Cell Count 9.2 X10^3/uL (4.5-11.0)
[2021-12-28 08:41] VITALS: PULSE 78; RESP 24; O2SAT 95
[2021-12-28 08:48] LABS: Blood Urea Nitrogen 13 mg/dL (7-17); Calcium 9.7 mg/dL (8.4-10.2); Carbon Dioxide 25 mmol/L (22-32); Chloride 106 mmol/L (98-107); Estimated Glomerular Filt Rate > 60 mL/min (>60); Glucose 100 mg/dL (70-100); Potassium 3.9 mmol/L (3.4-5.1); Sodium 142 mmol/L (137-145)
[2021-12-28 08:49] LABS: HEMOLYSIS 56 (0-50)
[2021-12-28 09:00] VITALS: BP 117/65; PULSE 73; RESP 21; O2SAT 96
[2021-12-28 09:05] LABS: HCG Quantitative /Beta subunit 324.4 mIU/mL
[2021-12-28 09:57] VITALS: BP 117/80; PULSE 90; RESP 18; O2SAT 98
[2021-12-28 10:16] LABS: Appearance Urine UA CLEAR; Bilirubin Urine UA NEGATIVE (NEGATIVE); Color Urine UA YELLOW; Glucose Urine UA NEGATIVE (Negative); Ketones Urine UA NEGATIVE (NEGATIVE); Leukocyte Esterase Urine UA NEGATIVE (NEGATIVE); Nitrite Urine UA NEGATIVE (Negative); Occult Blood Urine UA 3+ (Negative); Protein Urine UA NEGATIVE (Negative); Specific Gravity Urine UA 1.025 (1.000-1.035); Urobilinogen Urine UA 0.2 E.U./dL (0.2)
[2021-12-28 10:23] LABS: Amorphous Sediment Urine 2+; Bacteria Urine Few (2-10); Culture Indicated Urine Cult Not Indicated; RBC Urine 5-10/HPF (0-5/HPF); Squamous Epithelial Cell Urine 10-30 /HPF (0-5/HPF); WBC Urine 1-5/HPF (0-5/HPF)
== END 2021-12-28 10:03 | disposition home or self-care (01) ==
PROVIDERS: Emergency Provider Emergency Medicine; PCP Family Medicine
DX: O20.0 Threatened abortion (principal); Z3A.01 Less than 8 weeks gestation of pregnancy
CPT/HCPCS: 80048; 81001; 84702; 85025; 99282

== ENCOUNTER → 2021-12-30 10:48 | Outpatient (CLI) | payer OTHER, MEDICAID, SELFPAY ==
[2021-12-30 15:19] LABS: HCG Quantitative /Beta subunit 302.5 mIU/mL
== END ==
PROVIDERS: PCP Family Medicine; Referring Provider Family Medicine; Visit Provider Family Medicine
DX: N91.2 Amenorrhea, unspecified (principal)
CPT/HCPCS: 36415; 84702

== ENCOUNTER → 2022-01-01 07:15 | Outpatient (CLI) | payer OTHER, MEDICAID, SELFPAY ==
[2022-01-01 08:32] LABS: HCG Quantitative /Beta subunit 260.7 mIU/mL
== END ==
PROVIDERS: PCP Family Medicine; Referring Provider Family Medicine; Visit Provider Family Medicine
DX: O20.0 Threatened abortion (principal)
CPT/HCPCS: 36415; 84702

== ENCOUNTER → 2022-01-14 08:53 | Outpatient (CLI) | payer OTHER, MEDICAID, SELFPAY ==
[2022-01-14 10:39] LABS: HCG Quantitative /Beta subunit 100.2 mIU/mL
== END ==
PROVIDERS: Physician Assistant; PCP Family Medicine; Referring Provider Family Medicine; Visit Provider Family Medicine
DX: O20.0 Threatened abortion (principal)
CPT/HCPCS: 36415; 84702

== ENCOUNTER → 2022-01-20 12:59 | Outpatient (CLI) | payer OTHER, MEDICAID, SELFPAY ==
[2022-01-20 13:59] LABS: HCG Quantitative /Beta subunit 41.6 mIU/mL
== END ==
PROVIDERS: PCP Family Medicine; Referring Provider Physician Assistant; Visit Provider Physician Assistant
DX: O20.0 Threatened abortion (principal)
CPT/HCPCS: 36415; 84702

== ENCOUNTER → 2022-02-04 12:13 | Outpatient (CLI) | payer OTHER, MEDICAID, SELFPAY ==
[2022-02-04 14:31] LABS: HCG Quantitative /Beta subunit 17.8 mIU/mL
== END ==
PROVIDERS: PCP Family Medicine; Referring Provider Physician Assistant; Visit Provider Physician Assistant
DX: O03.9 Complete or unspecified spontaneous abortion without complication (principal)
CPT/HCPCS: 36415; 84702

== ENCOUNTER → 2022-02-18 15:30 | Outpatient (CLI) | payer OTHER, MEDICAID, SELFPAY ==
--- NOTE | 2022-02-18 15:31 | DI.US.S_ITS ---
PROCEDURE: US PELVIC COMPLETE INDICATIONS: DUB; POSSIBLE RPOC TECHNIQUE: Real-time scanning was performed of the pelvic organs, with image documentation. Additional endovaginal scanning was necessary due to incomplete visualization of the adnexal and endometrial structures by transabdominal scanning. COMPARISON: [facility], , US PELVIC COMPLETE, 02/08/2019, 12:30. FINDINGS: Uterus: Uterus is anteverted and normal in size at 4.9 x 2.9 x 4.8 cm. The myometrium is homogeneous. The endometrium measures 4.7 mm combined thickness. No vascularity visualized within the endometrium. Ovaries: The right ovary measures 3.6 x 2.1 x 2.5 cm. The left ovary measures 3.4 x 1.9 x 2.1 cm. The ovaries have a normal sonographic appearance. No adnexal masses are seen. Other: Fluid within the pelvis is within normal physiologic limits. IMPRESSION: No sonographic evidence for retained products of conception. We strive to produce accurate, complete, and clear reports of imaging services. To assist us in improving patient care, this report was composed using standard report templates and voice recognition software. Therefore, it may contain abnormal punctuation, insertions and/or omissions. Occasional wrong-word or sound-alike substitutions may occur. Though we review the report and make efforts to correct it, we do recommend that the report be read carefully in proper context to recognize any text inaccuracies. Dictated by: Josseline Little M.D. on 02/18/2022 at 17:31 Approved by: Josseline Little M.D. on 02/18/2022 at 17:33
[2022-02-18 16:25] LABS: Add Manual Diff / Slide Review NO; Basophils Absolute Auto 100 /uL (0-100); Basophils Percent Auto 0.7 % (0-2); Eosinophils Absolute Auto 100 /uL (0-450); Eosinophils Percent Auto 1.1 % (2-4); Hematocrit 36.9 % (36-46); Hemoglobin 12.9 g/dL (12.0-16.0); Lymphocytes Absolute Auto 3500 /uL (1100-4500); Lymphocytes Percent Auto 38.9 % (25-40); Mean Corpuscular HGB Conc 34.9 % (30-36); Mean Corpuscular Hemoglobin 32.4 PG (26-34); Mean Corpuscular Volume 92.8 fL (80-100); Monocytes Absolute Auto 500 /uL (0-900); Monocytes Percent Auto 5.9 % (3-14); Neutrophils Absolute Auto 4800 /uL (1500-7000); Neutrophils Percent Auto 53.4 % (50-75); Platelet Count 218 X10^3/uL (150-400); Red Blood Cell Count 3.97 X10^6/uL (4.0-5.2); Red Cell Distribution Width 12.2 % (11.6-14.8)
[2022-02-18 16:39] LABS: Appearance Urine UA CLEAR; Bilirubin Urine UA NEGATIVE (NEGATIVE); Color Urine UA YELLOW; Glucose Urine UA NEGATIVE (Negative); Ketones Urine UA NEGATIVE (NEGATIVE); Leukocyte Esterase Urine UA NEGATIVE (NEGATIVE); Nitrite Urine UA NEGATIVE (Negative); Occult Blood Urine UA 1+ (Negative); Protein Urine UA NEGATIVE (Negative); Specific Gravity Urine UA 1.015 (1.000-1.035); Urobilinogen Urine UA 0.2 E.U./dL (0.2)
[2022-02-18 16:41] LABS: pH Urine UA 7.5 (4.5-8.0)
[2022-02-18 17:00] LABS: RBC Urine 0-1/HPF (0-5/HPF); WBC Urine 0-1/HPF (0-5/HPF)
[2022-02-18 17:01] LABS: Bacteria Urine Occasional (0-1); Culture Indicated Urine Cult Not Indicated; Squamous Epithelial Cell Urine 0-1 /HPF (0-5/HPF)
== END ==
PROVIDERS: PCP Family Medicine; Referring Provider Obstetrics & Gynecology; Visit Provider Obstetrics & Gynecology
DX: O03.4 Incomplete spontaneous abortion without complication (principal); N93.9 Abnormal uterine and vaginal bleeding, unspecified; D64.9 Anemia, unspecified; N39.0 Urinary tract infection, site not specified
CPT/HCPCS: 36415; 76830; 76856; 81003; 81015; 85025

== ENCOUNTER → 2022-04-28 13:59 | Outpatient (CLI) | payer OTHER, MEDICAID, SELFPAY ==
--- NOTE | 2022-04-28 14:00 | DI.US.S_ITS ---
PROCEDURE: US OB <= 14 WEEKS FETUS INDICATIONS: dating and viability OUTSIDE/PRIOR DATING DATA: Last menstrual period (LMP): 03/13/2022. LMP-based estimated date of delivery (JADE): 12/18/2022. First dating scan (date and location): 04/28/2022. Estimated date of delivery (JADE) from first dating scan: 12/29/2022. TECHNIQUE: Real-time scanning was performed of the fetus and maternal pelvic organs, with image documentation. COMPARISON: [facility], US, US OB <= 14 WEEKS FETUS, 07/08/2019, 16:03. FINDINGS: There is a 3 mm anechoic focus within the endometrial canal, corresponding to a 5 week 0 day gestation. No cardiac activity is present. Maternal organs: Ovaries corpus luteum versus ectopic within the left adnexa with a moderate amount of adjacent free fluid. IMPRESSION: 1. Possible early intrauterine gestation . No cardiac activity. 2. Corpus luteum cyst versus ectopic within the left adnexa. We strive to produce accurate, complete, and clear reports of imaging services. To assist us in improving patient care, this report was composed using standard report templates and voice recognition software. Therefore, it may contain abnormal punctuation, insertions and/or omissions. Occasional wrong-word or sound-alike substitutions may occur. Though we review the report and make efforts to correct it, we do recommend that the report be read carefully in proper context to recognize any text inaccuracies. Dictated by: Ai Fernandez M.D. on 04/28/2022 at 14:51 Approved by: Ai Fernandez M.D. on 04/28/2022 at 14:54
[2022-04-28 17:34] LABS: HCG Quantitative /Beta subunit 656 mIU/mL
== END ==
PROVIDERS: PCP Family Medicine; Referring Provider Obstetrics & Gynecology; Visit Provider Obstetrics & Gynecology
DX: Z34.81 Encounter for supervision of other normal pregnancy, first trimester (principal)
CPT/HCPCS: 36415; 76801; 76817; 84702

== ENCOUNTER → 2022-04-30 07:02 | Outpatient (CLI) | payer OTHER, MEDICAID, SELFPAY ==
[2022-04-30 09:18] LABS: HCG Quantitative /Beta subunit 1469.4 mIU/mL
== END ==
PROVIDERS: PCP Family Medicine; Referring Provider Obstetrics & Gynecology; Visit Provider Obstetrics & Gynecology
DX: Z34.81 Encounter for supervision of other normal pregnancy, first trimester (principal)
CPT/HCPCS: 36415; 84702

== ENCOUNTER → 2022-05-19 15:07 | Outpatient (CLI) | payer OTHER, MEDICAID, SELFPAY ==
--- NOTE | 2022-05-19 15:09 | DI.US.S_ITS ---
PROCEDURE: US OB <= 14 WEEKS FETUS INDICATIONS: DATES OUTSIDE/PRIOR DATING DATA: Last menstrual period (LMP): 03/13/2022. LMP-based estimated date of delivery (JADE): 12/18/2022. First dating scan (date and location): 04/28/2022. Estimated date of delivery (JADE) from first dating scan: 12/29/2022. The calculations are made using the ultrasound generator JADE of 12/29/2022. TECHNIQUE: Real-time scanning was performed of the fetus and maternal pelvic organs, with image documentation. Endovaginal scanning was also performed to better visualize the fetus and maternal ovaries. COMPARISON: None. FINDINGS: Conceptus within the uterine cavity at the uterine fundus measuring 1.5 cm crown-rump length. Yolk sac noted. heart rate 160 beats per minute. IMPRESSION: Single living intrauterine gestation with estimated age 7 weeks 5 days. We strive to produce accurate, complete, and clear reports of imaging services. To assist us in improving patient care, this report was composed using standard report templates and voice recognition software. Therefore, it may contain abnormal punctuation, insertions and/or omissions. Occasional wrong-word or sound-alike substitutions may occur. Though we review the report and make efforts to correct it, we do recommend that the report be read carefully in proper context to recognize any text inaccuracies. Dictated by: Elliot Acosta M.D. on 05/20/2022 at 10:16 Approved by: Elliot Acosta M.D. on 05/20/2022 at 10:20
== END ==
PROVIDERS: PCP Family Medicine; Referring Provider Obstetrics & Gynecology; Visit Provider Obstetrics & Gynecology
DX: Z34.81 Encounter for supervision of other normal pregnancy, first trimester (principal); Z3A.01 Less than 8 weeks gestation of pregnancy
CPT/HCPCS: 76801

== ENCOUNTER → 2022-06-24 09:08 | Outpatient (CLI) | payer OTHER, MEDICAID, SELFPAY ==
[2022-06-24 11:46] LABS: Add Manual Diff / Slide Review NO; Basophils Absolute Auto 100 /uL (0-100); Basophils Percent Auto 0.5 % (0-2); Eosinophils Absolute Auto 300 /uL (0-450); Eosinophils Percent Auto 2.4 % (2-4); Hemoglobin 12.7 g/dL (12.0-16.0); Lymphocytes Absolute Auto 2400 /uL (1100-4500); Lymphocytes Percent Auto 20.9 % (25-40); Mean Corpuscular HGB Conc 34.3 % (30-36); Mean Corpuscular Hemoglobin 32.2 PG (26-34); Mean Corpuscular Volume 93.8 fL (80-100); Monocytes Absolute Auto 500 /uL (0-900); Monocytes Percent Auto 4.5 % (3-14); Neutrophils Absolute Auto 8300 /uL (1500-7000); Neutrophils Percent Auto 71.7 % (50-75); Platelet Count 185 X10^3/uL (150-400); Red Blood Cell Count 3.94 X10^6/uL (4.0-5.2); Red Cell Distribution Width 12.7 % (11.6-14.8); White Blood Cell Count 11.5 X10^3/uL (4.5-11.0)
[2022-06-24 13:03] LABS: HIV 1 & 2 Ab/Ag 4th Gen Combo NEGATIVE (NEGATIVE); Hep C Virus Ab w/Reflex Quant NEGATIVE s/c (NEGATIVE); Hepatitis B Surface Antigen NEGATIVE s/c (NEGATIVE); Rubella Antibody IgG 7.8 IU/mL (>15)
[2022-06-24 17:41] LABS: HCG Quantitative /Beta subunit 56952 mIU/mL
[2022-06-25 05:34] LABS: RPR Screen Non Reactive (Non Reactive)
[2022-06-25 09:09] LABS: Varicella IgG Antibody 301 index (Immune >165)
== END ==
PROVIDERS: PCP Family Medicine; Referring Provider Obstetrics & Gynecology; Visit Provider Obstetrics & Gynecology
DX: Z34.81 Encounter for supervision of other normal pregnancy, first trimester (principal)
CPT/HCPCS: 36415; 80055; 84702; 86787; 86803; 86850; 86900; 86901; 87389

== ENCOUNTER → 2022-07-18 07:13 | Outpatient (CLI) | payer OTHER, MEDICAID, SELFPAY ==
[2022-07-18 08:47] LABS: Influenza A - CEPHEID Flu A POSITIVE (NEGATIVE); Influenza B - CEPHEID Flu B NEGATIVE (NEGATIVE); Respiratory Syncytial Virus Negative (Negative)
[2022-07-18 08:48] LABS: COVID-19 CEPHEID 4-PLEX PCR Negative (Negative)
== END ==
PROVIDERS: PCP Family Medicine; Visit Provider Nurse Practitioner Family
DX: J02.9 Acute pharyngitis, unspecified (principal)
CPT/HCPCS: 0241U; 87070

== ENCOUNTER → 2022-07-22 11:40 | Outpatient (CLI) | payer OTHER, MEDICAID, SELFPAY ==
[2022-07-24 19:37] LABS: AFP Value 63.8 ng/mL (.); Insulin Dep Diabetes No (.); OSBR Risk 1IN 3404 (.); Results Report (.); Test Results *Screen Negative* (.)
== END ==
PROVIDERS: PCP Family Medicine; Referring Provider Obstetrics & Gynecology; Visit Provider Obstetrics & Gynecology
DX: Z34.82 Encounter for supervision of other normal pregnancy, second trimester (principal); Z3A.16 16 weeks gestation of pregnancy
CPT/HCPCS: 36415; 82105

== ENCOUNTER → 2022-08-20 14:18 | Outpatient (CLI) | payer OTHER, MEDICAID, SELFPAY ==
--- NOTE | 2022-08-20 14:19 | DI.US.S_ITS ---
PROCEDURE: US OB >= 14 WEEKS FETUS INDICATIONS: ANATOMY OUTSIDE/PRIOR DATING DATA: Last menstrual period (LMP): 03/13/2022. LMP-based estimated date of delivery (JADE): 12/18/2022. First dating scan (date and location): 04/28/2022. Estimated date of delivery (JADE) from first dating scan: 12/29/2022 TECHNIQUE: Real-time scanning was performed of the fetus, with image documentation and biometric measurements. COMPARISON: [facility], OB >= 14 WEEKS FETUS, 10/12/2019, 10:57. FINDINGS: General: A single living intrauterine gestation is present. Presentation: Vertex. Placenta: Placental position is posterior , without previa. Amniotic fluid index: 11.1 cm, normal range is 5-24 cm. Single deepest vertical pocket is 3.6 cm. heart rate: 140 beats per minute. Maternal cervical canal: 3.3 cm long. Normal lower limit is 2.5 cm. biometrics: Biparietal diameter: 4.9 cm, 20 week 5 day Head circumference: 18.9 cm, 21 week 1 day Abdominal circumference: 16.0 cm, 21 week 1 day Femur length: 3.5 cm, 21 week 0 day Clinically estimated gestational age: 21 week 2 day Composite gestational age from present scan: 21 week 0 day Estimated weight and percentile: 399 g, 35th percentile Anatomic survey: Neuro: Ventricles are non-dilated at less than 10 mm. Cisterna magna is normal at 3-11 mm. Cerebellum is normal in size and morphology. Nuchal skin fold: Normal at less than 6 mm between 14-21 weeks gestational age. Face: Nose and lips, facial profile are normal. Spine: No evidence for spina bifida. Heart: 4-chambered heart is present, with normal ventricular outflow tracts. Diaphragm: Diaphragm is intact. Stomach: Left-sided stomach is present. Kidneys: No hydronephrosis. Normal is less than 5 mm in 2nd trimester, less than 7 mm in 3rd trimester. Cord: 3-vessel cord has orthotopic insertion. Bladder: Normal in size. Extremities: All 4 extremities identified. IMPRESSION: Single live intrauterine consistent with a 21 week 0 day gestation Approved by: Jose G Dsouza M.D. on 08/20/2022 at 17:15
== END ==
PROVIDERS: PCP Family Medicine; Referring Provider Obstetrics & Gynecology; Visit Provider Obstetrics & Gynecology
DX: Z34.82 Encounter for supervision of other normal pregnancy, second trimester (principal); Z3A.21 21 weeks gestation of pregnancy
CPT/HCPCS: 76811

== ENCOUNTER → 2022-09-15 11:13 | Outpatient (CLI) | payer OTHER, MEDICAID, SELFPAY ==
[2022-09-15 12:36] LABS: Hematocrit 33.4 % (36-46); Hemoglobin 11.5 g/dL (12.0-16.0)
[2022-09-15 13:07] LABS: GTT (PREG) 1 Hour PP 50gm Dose 110 mg/dL (76-139)
[2022-09-18 12:09] LABS: Candida species Negative (Negative); Gardnerella vaginalis Negative (Negative); Trichomoas vaginalis Negative (Negative)
== END ==
PROVIDERS: Physician Assistant Medical; PCP Family Medicine; Referring Provider Obstetrics & Gynecology; Visit Provider Obstetrics & Gynecology
DX: O26.899 Other specified pregnancy related conditions, unspecified trimester (principal); Z3A.26 26 weeks gestation of pregnancy; R31.9 Hematuria, unspecified; N89.8 Other specified noninflammatory disorders of vagina
CPT/HCPCS: 36415; 82950; 85014; 85018; 87086; 87480; 87510; 87660

== ENCOUNTER → 2022-12-09 08:36 | Outpatient (CLI) | payer OTHER, MEDICAID, SELFPAY ==
[2022-12-10 12:35] LABS: Strep Grp B PCR NEG for Grp B Strep
== END ==
PROVIDERS: PCP Family Medicine; Visit Provider Obstetrics & Gynecology
DX: Z34.83 Encounter for supervision of other normal pregnancy, third trimester (principal); Z3A.36 36 weeks gestation of pregnancy
CPT/HCPCS: 87653

== ENCOUNTER 2022-12-25 05:51 | Inpatient (IN) | payer OTHER, MEDICAID, SELFPAY ==
[2022-12-25 06:36] LABS: Add Manual Diff / Slide Review NO; Basophils Absolute Auto 100 /uL (0-100); Basophils Percent Auto 0.7 % (0-2); Eosinophils Absolute Auto 100 /uL (0-450); Eosinophils Percent Auto 0.7 % (2-4); Hematocrit 33.1 % (36-46); Hemoglobin 11.6 g/dL (12.0-16.0); Lymphocytes Absolute Auto 2400 /uL (1100-4500); Lymphocytes Percent Auto 23.7 % (25-40); Mean Corpuscular HGB Conc 35.2 % (30-36); Mean Corpuscular Hemoglobin 32.8 PG (26-34); Mean Corpuscular Volume 93.2 fL (80-100); Monocytes Absolute Auto 600 /uL (0-900); Monocytes Percent Auto 5.6 % (3-14); Neutrophils Absolute Auto 6900 /uL (1500-7000); Neutrophils Percent Auto 69.3 % (50-75); Platelet Count 140 X10^3/uL (150-400); Red Blood Cell Count 3.55 X10^6/uL (4.0-5.2); Red Cell Distribution Width 13.3 % (11.6-14.8)
[2022-12-25] MEDS: LACTATED RINGERS 1,000 ML 999 ML IV (06:51)
[2022-12-25] MEDS: CITRIC ACID/SODIUM CITRATE 15 ML SOLUTION 30 ML PO (06:51)
[2022-12-25 06:54] VITALS: BP 118/77
[2022-12-25] MEDS: ACETAMINOPHEN 325 MG TABLET 975 MG PO (07:07)
--- NOTE | 2022-12-25 07:10 | SUR.OPER ---
Supine on padded OR bed, head on pillow, arms secured on padded arm boards at <90 degrees abduction, legs uncrossed, safety belt at thigh, tape over blanket over lower legs.
--- NOTE | 2022-12-25 07:51 | P.HPOB_ITS ---
OB HPI Date/Time Date of admission: 12/25/22 Date Patient Seen: 12/25/22 Time Patient Seen: 07:52 History of Present Condition Chief complaint: JADE Calculator Estimated Delivery Date Method Current WG Current Estimate 12/31/22 Ultrasound #1 39w 1d Other Estimates 12/18/22 LMP (Certain) 41w 0d 01/02/23 Ultrasound #2 38w 6d Estimated Gestational Age (weeks): 39+1 : 3 Para: 1 care: good care, initiated at week # (9), number of visits (12) and pounds weight gain (27) Dating criteria OB: LMP confirmed by 1st trimester US Ultrasounds: normal 1st trimester US and normal mid trimester US Obstetrical complications: none Medical complications OB: none Indications Operative indications ( section): previous uterine surgery Preadmission Labs Last OB Lab Results: Blood Type O Positive 12/25/22 06:26 Antibody Screen Negative 12/25/22 06:26 Hematocrit 33.1 % (36-46) L 12/25/22 06:26 Hemoglobin 11.6 g/dL (12.0-16.0) L 12/25/22 06:26 Hepatitis B Surface Antigen Negative s/c (NEGATIVE) 06/24/22 09 :42 Hepatitis C Antibody Negative s/c (NEGATIVE) 06/24/22 09:42 Rubella Antibody 7.8 IU/mL (>15) L 06/24/22 09:42 Varicella-Zoster IgG Antibody 301 index (Immune >165) 06/24/22 09:42 Glucose 1 Hour 110 mg/dL (76-139) 09/15/22 11:21 Group B Streptococcus (PCR) Neg for grp b strep 12/09/22 08:36 -: Chlamydia screen: negative, Gonorrhea screen: negative and Urine: negative -: PAP smear: Normal Genetic Screens: Cell-free DNA: Normal and Alpha-fetoprotein: Normal External Labs -: Urine: negative Prior (ies) Past Pregnancies Del. Date GA/Weeks Labor Lgth Wt Sex Route Outcome Anesthesia Place Delv Breastfeed Preg Comp Name 03/05/20 41.3 36 7 lb 11 oz Female live - full term IH 3 months other [place] Delivery Date: 03/05/20 Last Updated by: Olga Albert RN hyperemesis, syncope Evaluation Evaluation Baseline heart rate: 140 Variability: Moderate (11-25) monitor accelerations: Present Monitor Decelerations: Absent Status: Category l PFSH Medical History 37 weeks gestation of Anxiety FH: multiple pregnancies Leg fracture, left Migraine Miscarriage at 8 to 28 weeks gestation No significant family history Non-reassuring heart rate or rhythm affecting management of fetus Onychomycosis Pre-eclampsia Remove/insert IUD Surgical History Hx of cholecystectomy S/P [place] teeth extracted Family History Mother Diabetes mellitus Hypertension Hyperlipidemia Grandfather No problems noted. Grandmother No problems noted. Grandfather Heart disease Grandmother Diabetes mellitus Hypertension Brother ADHD Learning disability Social History marital status: household members: spouse and children lives independently: Yes housing: house pets and animals: Yes (Dog) education level: college (Associate's degree) occupational status: unemployed current occupational exposures/hazards: No special tete needs: No travel history: other (upcoming to [place] in May) seatbelt use: always water heater temp set < 120 deg: Yes working smoke detector in home: Yes fire extinguisher in home: Yes firearms in home: No do you feel safe at home: Yes Smoking Status: Never smoker second hand exposure: No alcohol intake: former (occasionally 1-2 glasses wine when not ) substance use type: marijuana (use gummies for sleep aid when not ) during the past year weight has: increased > 10 lbs well-balanced diet: daily or most days daily servings fruits/ve or more times/day caffeine: Yes (aware of 200mg limit) Type(s) of exercise: walking duration: 15-30 minutes/day Meds Home Medications and Allergies Home Medications Medication Instructions Recorded Confirmed Type vit no.133-ferrous 1 tab PO DAILY 09/05/19 12/25/22 History fumarate 28 mg-folic acid 800 mcg tablet () Allergies Allergy/AdvReac Type Severity Reaction Status Date / Time Iodine and Iodide Containing Allergy Intermediate Rash Verified 12/25/22 06:57 Produc chlorhexidine Allergy Mild Rash Verified 12/25/22 06:57 OB Exam Narrative Exam Narrative: HEENT: No thyromegaly, no anterior cervical or supraclavicular lymphadenopathy. Lungs:Clear to auscultation bilaterally, no wheezes. Cardiovascular: Regular rate and rhythm, no murmurs, rubs, or gallops. Abdomen: Well-healed scars. No hepatosplenomegaly. No masses palpable. Fundal height: 39 cm Estimated weight: 7-1/2 lb External genitalia: Normal Vagina: Normal Cervix: Normal Extremities: Trace edema Objective Labs 12/25/22 06:26 Labs: Laboratory Results - last 24 hr 12/25/22 12/25/22 06:26 06:26 WBC 10.0 RBC 3.55 L Hgb 11.6 L Hct 33.1 L MCV 93.2 MCH 32.8 MCHC 35.2 RDW 13.3 Plt Count 140 L Neut % (Auto) 69.3 Lymph % (Auto) 23.7 L [place] % (Auto) 5.6 Eos % (Auto) 0.7 L Baso % (Auto) 0.7 Neut # (Auto) 6900 Lymph # (Auto) 2400 [place] # (Auto) 600 Eos # (Auto) 100 Baso # (Auto) 100 Blood Type O Positive Antibody Screen Negative Assessment and Plan Assessment and Plan Assessment and Plan narrative: Assessment: 27-year-old 3 para 1 at 39-,1/7 weeks gestation with a previous sections Keloid scar Plan: Repeat low-transverse section and scar revision The risks, benefits, and alternatives to the procedure were explained to the patient. The risks including bleeding, infection, injury to the bowel, bladder, or ureters. She understands these risks and agrees to proceed. A full par Q was held and consent form was signed. Time Spent with Patient Total time spent with greater than 50% in coordination of care (as documented) at patient's floor/unit and/or counseling patient:: less than 15 minutes
--- NOTE | 2022-12-25 08:07 | PM.PREOP ---
Pre-operative Note COVID-19 Criteria for continued procedure: Non-surgical alternatives not available or appropriate per current SOC Interval Note History & Physical reviewed/Exam performed by Physician: Yes Changes to H&P: No H&P completed within 30 days and has changed as indicated here:: 12/25/22
[2022-12-25] MEDS: CEFAZOLIN 2 GM/100 ML PREMIX 100 ML IV (08:09)
--- NOTE | 2022-12-25 08:31 | SUR.OPER ---
CORD BLOOD & PLACENTA SENT WITH Yeyo Rodriguez POST-OP.
[2022-12-25] MEDS: TRIAMCINOLONE 40 MG/ML VIAL IM (08:59)
--- NOTE | 2022-12-25 09:06 | SUR.OPER ---
BABY GIRL DELIVERED @ 0833; 8 & 9; WEIGHT 7 LBS 4 OZ.
[2022-12-25 09:23] VITALS: BP 117/68; PULSE 64; RESP 16; TEMP 36.3; O2SAT 100
[2022-12-25 09:27] VITALS: BP 122/74; PULSE 66; RESP 14; O2SAT 100
[2022-12-25 09:34] VITALS: BP 107/70; PULSE 71; RESP 16; O2SAT 100
[2022-12-25 09:37] VITALS: BP 102/66; PULSE 74; RESP 102; TEMP 36.3; O2SAT 16
--- NOTE | 2022-12-25 09:54 | PM.OBCS.1 ---
Operative Date/Time/Diagnoses Date of procedure: 12/25/22 Time of procedure: 09:54 Pre-op diagnosis: 39 weeks gestation Previous C section Keloid scar Post-op diagnosis: same Procedure & Clinicians Procedure: Repeat low-transverse section Keloid scar revision Same procedure as scheduled: Yes Indications: 39 weeks gestation Previous section Keloid scar Surgeon: Jennifer Elaine Click Yes if Unassisted: No Salt Manager: Mahsa Bray Reason for Salt Manager: The catering administrative assistant was necessary to retract upon entry into the abdomen and uterus. She assisted with fundal pressure with delivery of the . She assisted with closure by retracting and clipping suture. She closed the contralateral fascia. Anesthesia Type: Epidural (With Duramorph) Operative Notes Findings: Live female in the [facility] presentation Normal uterus, tubes, and ovaries Omental to anterior abdominal wall adhesions Keloid scar of the previous Pfannenstiel incision Closure Type: primary Specimen(s): cord blood Intraoperative meds administered: Acetaminophen, Duramorph, Ketorolac and Pitocin Applied: Catheter (To continuous drainage) Estimated Blood Loss (mL): 400 Blood products transfused: none Procedure in detail: The patient was taken to the operating room where she was placed in the seated position. Spinal anesthesia with Duramorph was administered. The patient was then placed in the dorsal supine position with a leftward tilt. She was prepped and draped in the usual sterile fashion. A timeout was performed. After spinal analgesia was found to be adequate, the previous Pfannenstiel incision was excised in an elliptical fashion. The incision was then carried through to the underlying layer fascia. The fascia was nicked in the midline, and the incision extended bilaterally with the Jones scissors. The superior aspect of the fascial incision was grasped with a Acton clamps, elevated, and the underlying rectus muscles dissected off sharply and bluntly. Attention was then turned to the inferior aspect of this incision which in a similar fashion was grasped with a Alissa clamps, elevated, and the underlying rectus muscles dissected off sharply and bluntly. The rectus muscles were in the midline. The peritoneum was identified, grasped between 2 hemostats, and entered sharply with the Metzenbaum scissors. This incision was extended superiorly and inferiorly with good visualization of the bladder. The bladder blade was inserted. The vesicouterine peritoneum was identified, grasped with the pickup, and entered sharply with the Metzenbaum scissors. This incision was extended bilaterally, and the bladder flap was created digitally. The bladder blade was reinserted. The lower uterine segment was incised in a transverse fashion with the scalpel. Upon entering the amniotic sac there was moderate amount of clear amniotic fluid. The infant's head was delivered without difficulty. The nose and mouth were suctioned with bulb suction. The remainder of the body delivered without difficulty. The infant was wrapped in a warm blanket. The cord was double clamped and cut after 1 minute. The infant was handed off to waiting RN and RT. Pitocin was given in the IV fluids. The placenta was delivered by expression.. The uterus was cleared of all clots and debris. The uterine incision was repaired with #1 chromic in a running interlocking fashion, and a second layer the same suture was used for an imbricating layer. Hemostasis was achieved. The tubes and ovaries were examined and were found to be normal. The gutters were cleared of all clots and debris. The bladder flap was reapproximated using 2-0 Vicryl in a running fashion. The parietal peritoneum was closed using 2-0 Vicryl in a running fashion. The fascia was reapproximated using 0 Vicryl in a running fashion. The subcutaneous layer was copiously irrigated with warm normal saline. 5 simple interrupted sutures of 3-0 Vicryl were placed to reapproximate the subcutaneous layer. The skin was closed with 4-0 Monocryl in a subcuticular fashion. Steri-Strips were placed. A Telfa and ABD pad were placed. MediPort tape was placed. The uterus was expressed of a small amount of old blood. Sponge, lap, and instrument counts were correct x-2. The patient tolerated the procedure well, and was taken to PACU in stable condition. Complications: none Baby 1: Infant Gender: Female Presentation: vertex Position: Right Occiput Anterior Placental Delivery Description: Expressed Cord Vessel Description: 3 Vessels and Clamped/Cut (After 1 minute) score (1 min): 8 score (5 min): 9 Post-operative Condition: stable Disposition: PACU Aftercare: routine postop
[2022-12-25] MEDS: ACETAMINOPHEN 325 MG TABLET 650 MG PO ×2 (12:50→18:43)
[2022-12-25] MEDS: KETOROLAC 30 MG/ML VIAL IV ×2 (15:36→21:12)
[2022-12-26 02:11] VITALS: BP 113/80; PULSE 83; RESP 18; TEMP 37.3
[2022-12-26] MEDS: KETOROLAC 30 MG/ML VIAL IV (02:40)
[2022-12-26] MEDS: ACETAMINOPHEN 325 MG TABLET 650 MG PO ×4 (02:41→21:35)
[2022-12-26 06:34] LABS: Add Manual Diff / Slide Review NO; Basophils Absolute Auto 100 /uL (0-100); Basophils Percent Auto 0.6 % (0-2); Eosinophils Absolute Auto 0 /uL (0-450); Eosinophils Percent Auto 0.2 % (2-4); Hematocrit 25.8 % (36-46); Lymphocytes Absolute Auto 1800 /uL (1100-4500); Lymphocytes Percent Auto 15.2 % (25-40); Mean Corpuscular HGB Conc 34.8 % (30-36); Mean Corpuscular Hemoglobin 32.5 PG (26-34); Mean Corpuscular Volume 93.3 fL (80-100); Monocytes Absolute Auto 700 /uL (0-900); Monocytes Percent Auto 5.7 % (3-14); Neutrophils Absolute Auto 9200 /uL (1500-7000); Neutrophils Percent Auto 78.3 % (50-75); Platelet Count 111 X10^3/uL (150-400); Red Blood Cell Count 2.76 X10^6/uL (4.0-5.2); Red Cell Distribution Width 13.3 % (11.6-14.8); White Blood Cell Count 11.7 X10^3/uL (4.5-11.0)
[2022-12-26] MEDS: DOCUSATE 100 MG CAPSULE PO (09:38)
[2022-12-26] MEDS: PRENATAL VIT,CALC/IRON/FOLIC 1 TABLET 1 TAB PO (09:38)
[2022-12-26] MEDS: IBUPROFEN 600 MG TABLET PO ×3 (09:38→21:35)
[2022-12-26] MEDS: LANOLIN OINT 7 GM 1 APPLIC TOP (09:39)
--- NOTE | 2022-12-26 12:17 | P.PNOB_ITS ---
Subjective - OB Subjective Patient comments: no complaints, pain well controlled, tolerating diet, flatus present and other (Voiding without the catheter) baby status: doing well and nursing well feeding status: exclusively breast feeding Date Patient Seen: 12/26/22 Time Patient Seen: 10:30 Interval history: Patient is a 27-year-old 3 para 2 postop day # 1 status post repeat C- section and scar revision. Patient doing very well. Voided without the catheter. Ambulating. Tolerating a diet. going better. Exam Vital Signs (past 8 hours): Oxygen Delivery Method Room Air Oxygen Flow Rate 100 Narrative Exam Narrative: Generally: Patient is sitting up in bed, no acute distress Lungs: Clear to auscultation bilaterally Cardiovascular: Regular rate and rhythm Abdomen: Soft. Fundus: Firm at U-1 Incision: Clean dry and intact with bandage Extremities: Negative Homans Objective Labs 12/26/22 06:21 Labs: Laboratory Results - last 24 hr 12/26/22 06:21 WBC 11.7 H RBC 2.76 L Hgb 9.0 L Hct 25.8 L MCV 93.3 MCH 32.5 MCHC 34.8 RDW 13.3 Plt Count 111 L Neut % (Auto) 78.3 H Lymph % (Auto) 15.2 L [place] % (Auto) 5.7 Eos % (Auto) 0.2 L Baso % (Auto) 0.6 Neut # (Auto) 9200 H Lymph # (Auto) 1800 [place] # (Auto) 700 Eos # (Auto) 0 Baso # (Auto) 100 Assessment & Plan Plan day: 1 plan OB: routine postop care Comments: Anticipate discharge December 27, 2022 Time Spent With Patient Time: Total time spent is greater than 50% in coordination of care (as documented) at patient's floor/unit and/or counseling patient: Time with patient: 15-24 minutes
[2022-12-26] MEDS: OXYCODONE IR 5 MG TABLET PO ×2 (13:53→21:35)
[2022-12-26] MEDS: MAGNESIUM HYDROXIDE 30 ML UDC PO (21:36)
[2022-12-27] MEDS: ACETAMINOPHEN 325 MG TABLET 650 MG PO ×2 (04:10→10:01)
[2022-12-27] MEDS: IBUPROFEN 600 MG TABLET PO ×2 (04:10→10:01)
[2022-12-27] MEDS: DOCUSATE 100 MG CAPSULE PO (09:25)
[2022-12-27] MEDS: PRENATAL VIT,CALC/IRON/FOLIC 1 TABLET 1 TAB PO (09:25)
[2022-12-27] MEDS: MEASLES,MUMPS,RUBELLA VACC/PF 0.5 ML VIAL SUBCUT (09:40)
== END 2022-12-27 11:01 | disposition home or self-care (01) | DRG 540 ==
PROVIDERS: Admitting Provider Obstetrics & Gynecology; PCP Family Medicine; Referring Provider Obstetrics & Gynecology; Visit Provider Obstetrics & Gynecology
PROC: 10D00Z1 Extraction of Products of Conception, Low, Open Approach (ICD-10-PCS; CPT 59514; principal; 2022-12-25 07:45)
DX: O34.211 Maternal care for low transverse scar from previous cesarean delivery (principal); Z3A.39 39 weeks gestation of pregnancy; Z37.0 Single live birth; O99.892 Other specified diseases and conditions complicating childbirth; L91.0 Hypertrophic scar; O99.62 Diseases of the digestive system complicating childbirth; K66.0 Peritoneal adhesions (postprocedural) (postinfection)
CPT/HCPCS: 36415; 59050; 59514; 85025; 86850; 86900; 86901; J0690; J1885; J2274; J3010

== ENCOUNTER → 2023-10-13 17:45 | Outpatient (CLI) | payer OTHER, MEDICAID, SELFPAY | PROVIDERS: PCP Family Medicine; Visit Provider Physician Assistant | DX: R30.0 Dysuria (principal) | CPT/HCPCS: 81002; 87077; 87086; 87186; 87210 ==

== ENCOUNTER → 2024-03-24 11:38 | Outpatient (CLI) | payer BC, SELFPAY ==
[2024-03-24 12:53] LABS: TSH w/ Reflex to FT4 1.51 uIU/mL (0.47-4.68)
[2024-03-24 16:06] LABS: Follicle Stimulating Hormone 3.88 mIU/mL; Luteinizing Hormone 6.25 mIU/mL
== END ==
PROVIDERS: PCP Family Medicine; Referring Provider Family Medicine; Visit Provider Family Medicine
DX: R30.0 Dysuria (principal); R63.5 Abnormal weight gain
CPT/HCPCS: 36415; 83001; 83002; 84443